=== PATIENT | male | born 1970 | race Caucasian/White ===

== ENCOUNTER 2022-12-26 04:33 | Emergency (ER) | payer BC, SELFPAY ==
[2022-12-26] VITALS (9 sets, daily range): BP systolic 125–171; BP diastolic 87–110; PULSE 104–119; RESP 17–19; TEMP 36.7–36.8; O2SAT 96–99; BMI 28.1; BMI 26.6
[2022-12-26 04:51] LABS: POC Glucose,Bedside 378 (70-110)
--- NOTE | 2022-12-26 04:54 | PC.NURSE ---
Manual BP: 190/118
--- NOTE | 2022-12-26 05:02 | CT_ITS ---
PROCEDURE INFORMATION: Exam: CT Head Without Contrast Exam date and time: 12/26/2022 5:15 AM Age: 52 years old Clinical indication: Visual disturbance; Additional info: Significant vision change without trauma TECHNIQUE: Imaging protocol: Computed tomography of the head without contrast. Radiation optimization: All CT scans at this facility use at least one of these dose optimization techniques: automated exposure control; mA and/or kV adjustment per patient size (includes targeted exams where dose is matched to clinical indication); or iterative reconstruction. REPORTING DATA: Count of CT and Cardiac NM exams in prior 12 months: This patient has received 0 known CTs and 0 known cardiac nuclear medicine studies in the 12 months prior to the current study. COMPARISON: No relevant prior studies available. FINDINGS: Brain: Normal. No hemorrhage. Unremarkable white matter. No mass effect. Cerebral ventricles: No ventriculomegaly. Paranasal sinuses: Visualized sinuses are unremarkable. No fluid levels. Mastoid air cells: Visualized mastoid air cells are well aerated. Bones/joints: Unremarkable. No acute fracture. Soft tissues: Unremarkable. IMPRESSION: No acute intracranial abnormality.
--- NOTE | 2022-12-26 05:08 | PC.NURSE ---
Pt advised he is not able to provide urine sample at this time.
--- NOTE | 2022-12-26 05:12 | PC.NURSE ---
Pt gone to CT via wheelchair
[2022-12-26 05:13] LABS: Basophils # 0.1 K/mm3 (0-0.2); Basophils % 1.9 % (0.1-2.0); Eosinophils # 0.2 K/mm3 (0.0-0.4); Eosinophils % 2.4 % (0.1-12.0); Hematocrit 51.6 % (42.0-52.0); Hemoglobin 17.2 g/dL (14.1-18.0); Lymphocytes # 1.7 K/mm3 (0.7-4.5); Lymphocytes % 24.5 % (10-50); Mean Corpuscular HGB Conc 33.4 g/dL (31.8-35.4); Mean Corpuscular Hemoglobin 29.4 pg (27.0-31.2); Mean Platelet Volume 9.1 fl (7.4-10.4); Monocytes # 0.4 K/mm3 (0.1-1.0); Monocytes % 6.3 % (1.7-9.3); Neutrophils # 4.5 K/mm3 (1.8-7.8); Neutrophils % 64.9 % (37.0-80.0); Platelet Count 242 K/mm3 (142-424); Red Blood Count 5.86 M/mm3 (4.60-6.20); Red Cell Distribution Width 13.5 % (11.5-17.5)
[2022-12-26 05:18] LABS: Acetone, Serum (Rapid) None Detected (None Detect)
[2022-12-26 05:22] LABS: Alanine Aminotransferase 40 U/L (12-78); Albumin Level 4.4 g/dl (3.5-5.0); Albumin/Globulin Ratio 1.6 (1.1-1.8); Alkaline Phosphatase 106 U/L (38-126); Aspartate Amino Transferase 34 U/L (17-59); Bilirubin,Total 0.8 mg/dl (0.2-1.3); Blood Urea Nitrogen 18 mg/dl (9-20); Calcium 9.1 mg/dl (8.4-10.2); Carbon Dioxide 28 mmol/L (22.0-30.0); Chloride 96 mmol/L (98-107); Creatinine Clearance Estimated 127 mL/min (50-200); Estimated Glomerular Filt Rate 118 ml/min (>60); GFR (African American) 143 ML/MIN (>60); Globulin 2.8 g/dL (1.3-3.2); Glucose 392 mg/dl (74-100); Sodium 131 mmol/L (136-145); Total Protein,Serum 7.2 g/dl (6.3-8.2)
--- NOTE | 2022-12-26 05:24 | PC.NURSE ---
Pt back from RAD
[2022-12-26 05:27] LABS: C-Reactive Protein 6.3 mg/L (0-4)
[2022-12-26 05:41] LABS: Procalcitonin 0.075 ng/mL (0.0-2.0)
--- NOTE | 2022-12-26 05:42 | HMH.EDEYEP ---
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 by RN): Pt c/o sudden vision change at 0300 thia morning without trauma. States L > R with vision change. Reporting that the left eye has a red dot or line and it moves when I move my eye. He also notes the left eye to have a small area where it is clear but mostly it is just blotchy . He reports his right eye is just a little bit blurry all over . Denies using any corrective lenses, reports > 20 years since eye exam. He denies any significant PMH, but he does state that he has not been to a provider or ER for evaluation for 30 years. FS 378 on arrival to ER and pt is hypertensive. History of Present Illness HPI Narrative: last known visual ok was mn and at 0300 friend texted and pt unable to read text - no fever/rash or trauma and no ornelas or speech or other neuro sx - no known illness but has no recent health care MD chief complaint: vision change Onset (ago): hour(s) Onset description: awoke with symptoms Duration: constant Location: both eyes Eye Symptoms: decreased vision and blurry vision Place: home Mechanism: none Severity: moderate Associated symptoms: none Treatments Prior to Arrival: none Related Data Previous Rx's Medication Instructions Recorded atorvastatin 10 mg tablet (Lipitor) 10 mg PO HS #30 tabs 12/26/22 lisinopril 5 mg tablet 5 mg PO DAILY #30 tabs 12/26/22 metformin 500 mg tablet,extended 500 mg PO BID #60 tabs 12/26/22 release 24 hr Allergies Allergy/AdvReac Type Severity Reaction Status Date / Time peanut Allergy Severe intestinal Verified 12/26/22 05:00 swelling PFSH [facility] Disclaimer: The information contained in this section may have been updated after the patient was seen, as this information can be updated by other users. Social History Smoking Status: Never smoker alcohol intake: never current occupational status: employed Travel in the last 8 weeks: None ROS Obtained: Yes All systems reviewed & no additional complaints except as documented Physical Exam General General appearance: alert Head Head exam: normocephalic Eye Eye exam: Present PERRL, EOMI and other (unable to see fundi ) ENT ENT exam: Present mucous membranes moist Neck Neck exam: Present trachea midline Respiratory Respiratory exam: Absent respiratory distress Cardiovascular Cardiovascular exam: Present regular rate Abdominal Exam Abdominal exam: Present soft Extremities Exam Extremities exam: Present full ROM Neurological Exam Neurological exam: Present alert, oriented X3 and CN II-XII intact; Absent motor sensory deficit Psychiatric Psychiatric exam: Present normal affect Skin Skin exam: Present other (no temp art tenderness); Absent rash Medical Decision Making Medical Records Medical records reviewed: Yes I reviewed the patient's medical records. Abraham Inquiry Pt receiving controlled substance: No Vital Signs: 12/26/22 04:35 12/26/22 05:01 12/26/22 05:30 Temperature 98.2 F Temperature Source Oral Pulse Rate 104 H 106 H Pulse Rate [Right] 117 H Re
[2022-12-26 05:44] LABS: Erythrocyte Sedimentation Rate 5 mm/hr (0-20)
--- NOTE | 2022-12-26 06:12 | CT_ITS ---
PROCEDURE INFORMATION: Exam: CTA Neck With Contrast Exam date and time: 12/26/2022 6:26 AM Age: 52 years old Clinical indication: Visual disturbance; Additional info: Sudden vision changes, no pain or trauma TECHNIQUE: Imaging protocol: Computed tomographic angiography of the neck with contrast. 3D rendering (Not supervised by radiologist): MIP and/or 3D reconstructed images were created by the technologist. Radiation optimization: All CT scans at this facility use at least one of these dose optimization techniques: automated exposure control; mA and/or kV adjustment per patient size (includes targeted exams where dose is matched to clinical indication); or iterative reconstruction. Contrast material: ISOVUE 370; Contrast volume: 75 ml; Contrast route: INTRAVENOUS (IV); REPORTING DATA: Count of CT and Cardiac NM exams in prior 12 months: This patient has received 2 known CTs and 0 known cardiac nuclear medicine studies in the 12 months prior to the current study. COMPARISON: CT HEAD/BRAIN WO CON 12/26/2022 5:15 AM FINDINGS: Right common carotid artery: No stenosis. No dissection or occlusion. Right internal carotid artery: No stenosis of the extracranial segment. No dissection or occlusion. Right external carotid artery: No occlusion or stenosis of the origin. Left common carotid artery: No stenosis. No dissection or occlusion. Left internal carotid artery: No stenosis of the extracranial segment. No dissection or occlusion. Left external carotid artery: No occlusion or stenosis of the origin. Right vertebral artery: No stenosis. No dissection or occlusion. Left vertebral artery: No stenosis. No dissection or occlusion. Soft tissues: Normal. No significant soft tissue swelling. Bones/joints: No acute fracture. There is degenerative disc disease and spondylosis. IMPRESSION: No stenosis or occlusion. REFERENCES: NASCET CRITERIA. The degree of stenosis in the cervical segment of the internal carotid artery is based on NASCET criteria. Normal is no stenosis. Mild is less than 50% stenosis. Moderate is 50-69% stenosis. Severe is 70% to 99% stenosis. Total occlusion is no detectable patent lumen.
--- NOTE | 2022-12-26 06:12 | CT_ITS ---
PROCEDURE INFORMATION: Exam: CTA Head With Contrast, Arteriography Exam date and time: 12/26/2022 6:26 AM Age: 52 years old Clinical indication: Visual disturbance; Additional info: Sudden vision changes, no pain or trauma TECHNIQUE: Imaging protocol: Computed tomographic angiography of the head with contrast. Exam focused on the arteries. 3D rendering (Not supervised by radiologist): MIP and/or 3D reconstructed images were created by the technologist. Radiation optimization: All CT scans at this facility use at least one of these dose optimization techniques: automated exposure control; mA and/or kV adjustment per patient size (includes targeted exams where dose is matched to clinical indication); or iterative reconstruction. Contrast material: ISOVUE 370; Contrast volume: 100 ml; Contrast route: INTRAVENOUS (IV); REPORTING DATA: Count of CT and Cardiac NM exams in prior 12 months: This patient has received 2 known CTs and 0 known cardiac nuclear medicine studies in the 12 months prior to the current study. COMPARISON: CT HEAD/BRAIN WO CON 12/26/2022 5:15 AM FINDINGS: ANTERIOR CIRCULATION: Right internal carotid artery: Intracranial segment is patent with no significant stenosis. No aneurysm. Right middle cerebral artery: No occlusion or significant stenosis. No aneurysm. Right anterior cerebral artery: No occlusion or significant stenosis. No aneurysm. Left internal carotid artery: Intracranial segment is patent with no significant stenosis. No aneurysm. Left middle cerebral artery: No occlusion or significant stenosis. No aneurysm. Left anterior cerebral artery: No occlusion or significant stenosis. No aneurysm. POSTERIOR CIRCULATION: Right vertebral artery: No occlusion or significant stenosis. No aneurysm. Left vertebral artery: No occlusion or significant stenosis. No aneurysm. Basilar artery: No occlusion or significant stenosis. No aneurysm. Right posterior cerebral artery: No occlusion or significant stenosis. No aneurysm. Left posterior cerebral artery: No occlusion or significant stenosis. No aneurysm. Brain: No definite mass, mass effect, or midline shift. Cerebral ventricles: No ventriculomegaly. Bones/joints: Unremarkable. No acute fracture. Soft tissues: Unremarkable. IMPRESSION: No large vessel stenosis or occlusion.
[2022-12-26 06:31] LABS: Hemoglobin A1C > 14.0 % (4.0-6.0)
--- NOTE | 2022-12-26 07:05 | PC.NURSE ---
Dr. Jenkins called per Dr. alexander, left voicemail to return call to ER.
--- NOTE | 2022-12-26 08:09 | PC.NURSE ---
ROUNDED ON PT, UPDATED AT THIS TIME. PT ASSISTED TO BR
--- NOTE | 2022-12-26 08:16 | PC.NURSE ---
DR PHELPS AT BEDSIDE
--- NOTE | 2022-12-26 08:26 | PC.NURSE ---
DR PHELPS SPEAKING WITH DR BILLS
== END 2022-12-26 08:55 | disposition home or self-care (01) ==
PROVIDERS: Emergency Provider Emergency Medicine
DX: E11.39 Type 2 diabetes mellitus with other diabetic ophthalmic complication (principal); E11.65 Type 2 diabetes mellitus with hyperglycemia; E87.1 Hypo-osmolality and hyponatremia; I10 Essential (primary) hypertension
CPT/HCPCS: 70450; 70496; 70498; 80053; 82009; 82962; 83036; 84145; 85025; 85651; 86140; 96360; 99285; Q9967

== ENCOUNTER 2024-04-15 19:01 | Outpatient (CLI) | payer BC, SELFPAY ==
[2024-04-15 20:24] LABS: Anion Gap 11.7 mEq/L (5-15); Blood Urea Nitrogen 21 mg/dl (9-20); Carbon Dioxide 24 mmol/L (22.0-30.0); Chloride 109 mmol/L (98-107); Potassium 4.7 mmoL/L (3.5-5.1); Sodium 140 mmol/L (136-145)
[2024-04-15 20:25] LABS: Alanine Aminotransferase 34 U/L (12-78); Albumin Level 3.9 g/dl (3.5-5.0); Albumin/Globulin Ratio 1.5 (1.1-1.8); Alkaline Phosphatase 74 U/L (38-126); Aspartate Amino Transferase 29 U/L (17-59); Bilirubin,Total 0.6 mg/dl (0.2-1.3); Chol/HDL Ratio 2.1 (1-3.5); Cholesterol 154 mg/dl (140-200); Estimated Glomerular Filt Rate 101 ml/min (>60); GFR (African American) 122 ML/MIN (>60); Globulin 2.6 g/dL (1.3-3.2); Glucose 219 mg/dl (74-100); HDL Cholesterol 72 mg/dl (40-60); Total Protein,Serum 6.5 g/dl (6.3-8.2); Triglycerides 89 mg/dl (30-150); VLDL Cholesterol 18 mg/dL (0-40)
[2024-04-15 20:35] LABS: Direct LDL Cholesterol 55.91 mg/dL (100-129)
[2024-04-15 20:55] LABS: Prostate Specific Ag Screen 0.8 ng/ml (0.0-4.0)
== END 2024-04-15 23:59 | disposition home or self-care (01) ==
LOC: LAB.DROPOF 19:02
PROVIDERS: PCP Family Medicine; Visit Provider Family Medicine
DX: Z12.5 Encounter for screening for malignant neoplasm of prostate (principal); E66.9 Obesity, unspecified; Z68.30 Body mass index [BMI] 30.0-30.9, adult
CPT/HCPCS: 80053; 80061; G0103

== ENCOUNTER 2024-06-13 09:57 | Outpatient (CLI) | payer BC, SELFPAY ==
[2024-06-13 18:52] LABS: Alanine Aminotransferase 33 U/L (12-78); Albumin Level 3.9 g/dl (3.5-5.0); Albumin/Globulin Ratio 1.5 (1.1-1.8); Alkaline Phosphatase 81 U/L (38-126); Anion Gap 13.5 mEq/L (5-15); Aspartate Amino Transferase 31 U/L (17-59); Bilirubin,Total 0.5 mg/dl (0.2-1.3); Blood Urea Nitrogen 27 mg/dl (9-20); Calcium 9.5 mg/dl (8.4-10.2); Carbon Dioxide 24 mmol/L (22.0-30.0); Chloride 102 mmol/L (98-107); Chol/HDL Ratio 2.3 (1-3.5); Cholesterol 171 mg/dl (140-200); Estimated Glomerular Filt Rate 70 ml/min (>60); GFR (African American) 84 ML/MIN (>60); Globulin 2.6 g/dL (1.3-3.2); Glucose 303 mg/dl (74-100); HDL Cholesterol 75 mg/dl (40-60); Potassium 4.5 mmoL/L (3.5-5.1); Sodium 135 mmol/L (136-145); Total Protein,Serum 6.5 g/dl (6.3-8.2); Triglycerides 181 mg/dl (30-150); VLDL Cholesterol 36 mg/dL (0-40)
[2024-06-13 19:05] LABS: Direct LDL Cholesterol 73.74 mg/dL (100-129)
[2024-06-13 19:15] LABS: Hemoglobin A1C 10.9 % (4.0-6.0)
== END 2024-06-13 23:59 | disposition home or self-care (01) ==
LOC: LAB.DROPOF 06-16 12:26
PROVIDERS: PCP Family Medicine; Visit Provider Family Medicine
DX: L60.3 Nail dystrophy (principal); E11.42 Type 2 diabetes mellitus with diabetic polyneuropathy; Z79.84 Long term (current) use of oral hypoglycemic drugs
CPT/HCPCS: 80053; 80061; 83036

== ENCOUNTER 2024-06-28 12:02 | Emergency (ER) | payer BC, SELFPAY ==
[2024-06-28] VITALS (7 sets, daily range): BP systolic 98–139; BP diastolic 60–115; PULSE 109–116; RESP 15–22; TEMP 36.9; O2SAT 96–100; BMI 31.3; BMI 33.4
--- NOTE | 2024-06-28 12:05 | ECG_ITS ---
APPROVED REPORT Exam: Resting ECG HR:115 bpm ECG Measurements Heart Rate 115 AXES OR 160 P 58 QRSd 129 QRS 87 QT 331 T 17 QTc 399 Conclusion Sinus tachycardia Right bundle branch block T wave inversions without elevations Electronically signed by : ISIAH GARCIA, 06/28/2024 15:12:40
--- NOTE | 2024-06-28 12:05 | PC.NURSE ---
TONY @ BS at this time
--- NOTE | 2024-06-28 12:07 | PC.NURSE ---
glucose was 339
--- NOTE | 2024-06-28 12:08 | PC.NURSE ---
stroke alert called
--- NOTE | 2024-06-28 12:11 | CT_ITS ---
PROCEDURE INFORMATION: Exam: CTA Neck With Contrast Exam date and time: 06/28/2024 12:19 PM Age: 54 years old Clinical indication: Stroke-like symptoms; Altered mental status/memory loss; Additional info: AMS aphasia TECHNIQUE: Imaging protocol: Computed tomographic angiography of the neck with contrast. Exam focused on the cervical segments of the vasculature. 3D rendering (Not supervised by radiologist): MIP and/or 3D reconstructed images were created by the technologist. Radiation optimization: All CT scans at this facility use at least one of these dose optimization techniques: automated exposure control; mA and/or kV adjustment per patient size (includes targeted exams where dose is matched to clinical indication); or iterative reconstruction. Contrast material: ISOVUE 370; Contrast volume: 80 ml; Contrast route: INTRAVENOUS (IV); COMPARISON: CT ANGIO NECK 12/26/2022 6:26 AM FINDINGS: Right common carotid artery: The right common carotid artery is widely patent. No stenosis. Right internal carotid artery: The right internal carotid artery is patent. No stenosis by NASCET criteria. No evidence of dissection. Right external carotid artery: No occlusion or stenosis of the origin. Left common carotid artery: The left common carotid artery is widely patent. No stenosis. Left internal carotid artery: The left internal carotid artery is patent. No stenosis by NASCET criteria. No evidence of dissection. Left external carotid artery: No occlusion or stenosis of the origin. Right vertebral artery: Right vertebral artery is unremarkable without flow-limiting stenosis. Left vertebral artery: Left vertebral artery is unremarkable without flow-limiting stenosis. Right subclavian artery: No flow-limiting stenosis in the proximal right subclavian artery. Left subclavian artery: No flow-limiting stenosis in the proximal left subclavian artery. Soft tissues: Normal. No significant soft tissue swelling. Bones/joints: No acute fracture. IMPRESSION: No evidence of occlusion or dissection along the major cervical arteries. REFERENCES: NASCET CRITERIA. The degree of stenosis in the cervical segment of the internal carotid artery is based on NASCET criteria. Normal is no stenosis. Mild is less than 50% stenosis. Moderate is 50-69% stenosis. Severe is 70% to 99% stenosis. Total occlusion is no detectable patent lumen.
--- NOTE | 2024-06-28 12:11 | CT_ITS ---
PROCEDURE INFORMATION: Exam: CTA Head With Contrast, Arteriography Exam date and time: 06/28/2024 12:19 PM Age: 54 years old Clinical indication: Stroke-like symptoms; Altered mental status/memory loss; Additional info: AMS aphasia TECHNIQUE: Imaging protocol: Computed tomographic angiography of the head with contrast. Exam focused on the arteries. 3D rendering (Not supervised by radiologist): MIP and/or 3D reconstructed images were created by the technologist. Radiation optimization: All CT scans at this facility use at least one of these dose optimization techniques: automated exposure control; mA and/or kV adjustment per patient size (includes targeted exams where dose is matched to clinical indication); or iterative reconstruction. Contrast material: ISOVUE 360; Contrast volume: 80 ml; Contrast route: INTRAVENOUS (IV); COMPARISON: CT ANGIO HEAD 12/26/2022 6:26 AM FINDINGS: ANTERIOR CIRCULATION: Right internal carotid artery: Intracranial segment is patent with no significant stenosis. No aneurysm. Right middle cerebral artery: Right middle cerebral artery is patent. No significant stenosis. No aneurysm. Right anterior cerebral artery: Right anterior cerebral artery is patent. No significant stenosis. No aneurysm. Left internal carotid artery: Intracranial segment is patent with no significant stenosis. No aneurysm. Left middle cerebral artery: There is a thrombus in the left middle cerebral artery, M2 branch, inferior division. Left anterior cerebral artery: Left anterior cerebral artery is patent. No significant stenosis. No aneurysm. POSTERIOR CIRCULATION: Right vertebral artery: Right vertebral artery is unremarkable without flow-limiting stenosis. Left vertebral artery: Left vertebral artery is unremarkable without flow-limiting stenosis. Basilar artery: Basilar artery is patent. Right posterior cerebral artery: There is persistent origin of right posterior cerebral artery. Right posterior cerebral artery is patent. No significant stenosis. No aneurysm. Left posterior cerebral artery: Left posterior cerebral artery is patent. No significant stenosis. No aneurysm. Veins: Dural venous sinuses are patent Brain: There is a moderate-sized hypoenhancing region in the left temporal lobe consistent with known evolving left temporal lobe infarct. Cerebral ventricles: No ventriculomegaly. Bones/joints: Unremarkable. No acute fracture. Soft tissues: Unremarkable. Other findings: Moderate collateral network noted. IMPRESSION: 1. There is a thrombus in the left middle cerebral artery, M2 branch inferior division. 2. Evolving left temporal lobe infarct.
--- NOTE | 2024-06-28 12:11 | CT_ITS ---
PROCEDURE INFORMATION: Exam: CTA Chest With Contrast Exam date and time: 06/28/2024 12:23 PM Age: 54 years old Clinical indication: Other: Aphasia; Additional info: AMS, aphasia TECHNIQUE: Imaging protocol: Computed tomographic angiography of the chest with contrast. Exam focused on the arteries. 3D rendering (Not supervised by radiologist): MIP and/or 3D reconstructed images were created by the technologist. Radiation optimization: All CT scans at this facility use at least one of these dose optimization techniques: automated exposure control; mA and/or kV adjustment per patient size (includes targeted exams where dose is matched to clinical indication); or iterative reconstruction. Contrast material: ISOVUE 370; Contrast volume: 80 ml; Contrast route: INTRAVENOUS (IV); COMPARISON: CT ANGIO ABDOMEN PELVIS 06/28/2024 12:23 PM FINDINGS: Pulmonary arteries: Normal. No pulmonary emboli. Aorta: Unremarkable. No aortic aneurysm. No aortic dissection. Lungs: Unremarkable. No consolidation. No masses. Pleural spaces: Unremarkable. No pneumothorax. No pleural effusion. Heart: Unremarkable. No cardiomegaly. No pericardial effusion. Esophagus: Mild distension of distal esophagus with gas. No wall thickening identified. Lymph nodes: Unremarkable. No enlarged lymph nodes. Bones/joints: Unremarkable. No acute fracture. Soft tissues: Unremarkable. IMPRESSION: 1. Mild distension of distal esophagus with gas. No wall thickening identified. 2. Negative for aortic aneurysm or dissection.
--- NOTE | 2024-06-28 12:12 | CT_ITS ---
PROCEDURE INFORMATION: Exam: CT Head Without Contrast Exam date and time: 06/28/2024 12:17 PM Age: 54 years old Clinical indication: Stroke-like symptoms; Altered mental status/memory loss; Additional info: AMS aphasia TECHNIQUE: Imaging protocol: Computed tomography of the head without contrast. Radiation optimization: All CT scans at this facility use at least one of these dose optimization techniques: automated exposure control; mA and/or kV adjustment per patient size (includes targeted exams where dose is matched to clinical indication); or iterative reconstruction. Other technique: STROKE PROTOCOL was implemented. COMPARISON: CT ANGIO HEAD 12/26/2022 6:26 AM FINDINGS: Brain: There is loss of grady-white matter differentiation in the left temporal lobe. Cerebral ventricles: No ventriculomegaly. Paranasal sinuses: Visualized sinuses are unremarkable. No fluid levels. Mastoid air cells: Visualized mastoid air cells are well aerated. Bones: Unremarkable. No acute fracture. Soft tissues: Unremarkable. Vasculature: Dense left middle cerebral artery is suspicious for thrombus. IMPRESSION: 1. Evolving left middle cerebral artery infarct. 2. Dense left middle cerebral artery is suspicious for thrombus. ASSESSMENT: ASPECTS ([place] Stroke Program Early CT Score) is 8
--- NOTE | 2024-06-28 12:12 | CT_ITS ---
PROCEDURE INFORMATION: Exam: CTA Abdomen and Pelvis With Contrast Exam date and time: 06/28/2024 12:23 PM Age: 54 years old Clinical indication: Other: R/O dissection; Additional info: AMS aphasia. Rule out dissection TECHNIQUE: Imaging protocol: Computed tomographic angiography of the abdomen and pelvis with contrast. Exam focused on the arteries. 3D rendering (Not supervised by radiologist): MIP and/or 3D reconstructed images were created by the technologist. Radiation optimization: All CT scans at this facility use at least one of these dose optimization techniques: automated exposure control; mA and/or kV adjustment per patient size (includes targeted exams where dose is matched to clinical indication); or iterative reconstruction. Contrast material: ISOVUE 370; Contrast volume: 80 ml; Contrast route: INTRAVENOUS (IV); COMPARISON: CT ANGIO CHEST 06/28/2024 12:23 PM FINDINGS: Aorta: No aortic aneurysm. No aortic dissection. Celiac trunk and mesenteric arteries: No occlusion or significant stenosis. Renal arteries: No occlusion or significant stenosis. Right iliac arteries: No occlusion or significant stenosis. Left iliac arteries: No occlusion or significant stenosis. Liver: No mass. Gallbladder and biliary ducts: Unremarkable. No calcified stones. No ductal dilation. Pancreas: Unremarkable. No mass. No ductal dilation. Spleen: Unremarkable. No splenomegaly. Adrenal glands: Unremarkable. No mass. Kidneys and ureters: Unremarkable. No solid mass. No hydronephrosis. Stomach and bowel: Unremarkable. No obstruction. No mucosal thickening. Appendix: No evidence of appendicitis. Intraperitoneal space: Unremarkable. No free air. No significant fluid collection. Lymph nodes: Unremarkable. No enlarged lymph nodes. Urinary bladder: Unremarkable. No mass. Reproductive: Unremarkable as visualized. Bones/joints: No acute fracture. Soft tissues: Fat containing inguinal hernias bilaterally. IMPRESSION: Negative for aortic aneurysm or dissection.
--- NOTE | 2024-06-28 12:13 | PC.NURSE ---
pt to CT scan
--- NOTE | 2024-06-28 12:16 | PC.NURSE ---
DR GARCIA SPEAKING WITH DR KHAN
[2024-06-28] MEDS: IOPAMIDOL-370 (76%);100ML BOTTLE 160 ML IV (12:18)
[2024-06-28] MEDS: SODIUM CHLORIDE 0.9% 10ML SYR (RAD ONLY) 10 ML IV (12:18)
[2024-06-28] MEDS: 0.9 % SODIUM CHLORIDE 50 ML VIAL IV (12:18)
[2024-06-28 12:20] LABS: Basophils % 0.2 % (0.1-2.0); Eosinophils # 0.1 K/mm3 (0.0-0.4); Hematocrit 52.1 % (42.0-52.0); Hemoglobin 16.5 g/dL (14.1-18.0); Lymphocytes # 1.8 K/mm3 (0.7-4.5); Lymphocytes % 12.2 % (10-50); Mean Corpuscular HGB Conc 31.7 g/dL (31.8-35.4); Mean Corpuscular Hemoglobin 29.7 pg (27.0-31.2); Mean Corpuscular Volume 93.8 fl (80-94); Monocytes % 6.8 % (1.7-9.3); Neutrophils # 11.5 K/mm3 (1.8-7.8); Neutrophils % 79.8 % (37.0-80.0); Platelet Count 288 K/mm3 (142-424); Red Blood Count 5.55 M/mm3 (4.60-6.20); Red Cell Distribution Width 13.8 % (11.5-17.5); White Blood Count 14.4 K/mm3 (4.8-10.8)
--- NOTE | 2024-06-28 12:23 | PC.NURSE ---
spoke with pts friend in [facility] who is the person that called [facility]. She states pt is normally alert and oriented. has a history of diabetes and insomnia. states when she arrived at his apartment he was disoriented and unable to answer any questions.
--- NOTE | 2024-06-28 12:24 | HMH.ITSTN ---
GFR completion/results overrode for this patient by physician on a risk vs. benefit situation.
[2024-06-28 12:27] LABS: VBG Base Excess -13.4 mmol/L (-2.4-2.3); VBG HCO3 13.8 mmol/L (23-30); VBG Oxygen Saturation 82.3 % (50-70); VBG PCO2 32.6 mmol/L (35-51); VBG PH 7.25 mmol/L (7.31-7.41); VBG PO2 49.2 mmol/L (28-40); VBG Total CO2 14.8 mmol/L (23-27)
[2024-06-28 12:28] LABS: Lactate Venous 3.1 mmol/L (0.4-2.0)
[2024-06-28 12:28] LABS: Albumin Level 4.8 g/dl (3.5-5.0); Chloride 102 mmol/L (98-107)
--- NOTE | 2024-06-28 12:28 | HMH.EDGENADL ---
Discharge Plan Disposition Patient Disposition: Xfer Short-Term Hosp Chief Complaint: Altered Mental Status Prescriptions Prescriptions: No Action Tradjenta 5 mg tablet 5 mg PO DAILY Qty: 30 2RF (DME) FreeStyle Yrn 14 Day Sensor Kit See Rx Instructions .Route Qty: 1 0RF Rx Instructions: As directed (DME) FreeStyle Yrn 14 Day [place] Misc See Rx Instructions .Route Qty: 1 0RF Rx Instructions: As directed (DME) Blood Glucose Test Strip See Rx Instructions .Route Qty: 100 0RF Rx Instructions: As directed (DME) lancets 30 gauge misc See Rx Instructions .Route Qty: 100 0RF Rx Instructions: As directed lisinopril 10 mg tablet 10 mg PO DAILY Qty: 30 2RF atorvastatin 10 mg tablet See Rx Instructions .ROUTE .COMPLEX Qty: 30 1RF Dose Instruction: TAKE 1 TABLET BY MOUTH ONCE DAILY AT NIGHT AT BEDTIME Rx Instructions: TAKE 1 TABLET BY MOUTH ONCE DAILY AT NIGHT AT BEDTIME metformin 1,000 mg tablet See Rx Instructions .ROUTE .COMPLEX Qty: 180 0RF Dose Instruction: TAKE 1 TABLET BY MOUTH TWICE DAILY FOR DIABETES Rx Instructions: TAKE 1 TABLET BY MOUTH TWICE DAILY FOR DIABETES (DME) Dexcom G7 Salvager Helper Misc See Rx Instructions .Route Qty: 1 0RF Rx Instructions: As directed (DME) Dexcom G7 Sensor Device See Rx Instructions .Route Qty: 1 0RF Rx Instructions: As directed Jardiance 25 mg tablet 25 mg PO DAILY Qty: 30 2RF Rx Instructions: e11.9 Referrals Follow up/Referrals: Dheeraj Wood MD [Primary Care Provider] - See instructions Clinical Impressions Clinical Impression: Acute ischemic left MCA stroke, DKA (diabetic ketoacidosis), Encephalopathy, Acute hyperkalemia Stand Alone Forms Stand Alone Forms: Transfer Record - ED Instructions Patient Instructions: DI for Altered Mental Status Print Language Print Language: Frisian Discharge ED Provider: [facility] General Chief complaint: Altered Mental Status Stated complaint: Chest pain Time Seen by Provider: 06/28/24 12:10 Mode of Arrival: EMS Source of Information: EMS Limitations: Altered Mental Status Description of Symptoms (Recalled from ER Triage Doc. by RN): pts sister in law called ems due to pt having altered mental status. last known well was . he is currently altered. unable to answer questions or follow commands. pt is pale and clammy. History of Present Illness HPI narrative: Please note that above description of symptoms, in this electronic medical record under categorization of recalled from ER triage doctor by RN are reflective of an initial nursing assessment, however, is not reflective of my full history and physical exam that was personally taken and clarified. Consequentially, this preceding description of symptoms, which may include the patient's categorized chief complaint in the EMR, do not reflect my personal clinical impression, and the ultimate description of history of present illness and patient stated complaints should be deferred to this section of the note. Unless stated otherwise or congruent with this section of the note, additional signs, symptoms, or incongruence should be interpreted as inaccurate with my clinical impression. Related Data Home Medications ?Medication ?Instructions ?Recorded ?Confirmed atorvastatin 10 mg tablet 10 mg PO HS 06/28/24 06/28/24 metformin 1,000 mg tablet 1,000 mg PO BIDWMEAL 06/28/24 06/28/24 Previous Rx's ?Medication ?Instructions ?Recorded blood sugar diagnostic (Blood #100 ea 02/19/23 Glucose Test strips) flash glucose scanning reader #1 ea 02/19/23 (FreeStyle Yrn 14 Day [place]) flash glucose sensor (FreeStyle #1 ea 02/19/23 Yrn 14 Day Sensor kit) lancets 30 gauge #100 ea 02/19/23 blood-glucose meter,continuous #1 ea 06/18/23 (Dexcom G7 Salvager Helper) blood-glucose sensor (Dexcom G7 #1 ea 06/18/23 Sensor device) lisinopril 10 mg tablet 10 mg PO DAILY #30 tabs 04/15/24 empagliflozin 25 mg tablet 25 mg PO DAILY #30 tabs 04/24/24 (Jardiance) linagliptin 5 mg tablet (Tradjenta) 5 mg PO DAILY #30 tabs 06/16/24 Allergies Allergy/AdvReac Type Severity Reaction Status Date / Time peanut Allergy Severe intestinal Verified 06/13/24 09:13 [facility] Disclaimer: The information contained in this section may have been updated after the patient was seen, as this information can be updated by other users. Medical History Onychomycosis Diabetic neuropathy HLD (hyperlipidemia) HTN (hypertension), benign T2DM (type 2 diabetes mellitus) Surgical History History of repair of ACL Hx of tonsillectomy Family History Other Adopted Asthma Cancer Coronary artery disease Diabetes Heart attack Hyperlipidemia Hypertension Social History Smoking Status: Unknown if ever smoked alcohol intake: never current occupational status: employed Travel in the last 8 weeks: None ROS Obtained: Yes unobtainable due to mental status Physical Exam General General appearance: alert and in no apparent distress Eye Eye exam: Present normal appearance, PERRL and other (Blind in both eyes at baseline) ENT ENT exam: Present normal exam Chest Chest inspection: Present normal inspection Respiratory Respiratory exam: Present normal lung sounds bilaterally and respiratory distress Cardiovascular Cardiovascular exam: Present normal rhythm and tachycardia; Absent systolic murmur Abdominal Exam Abdominal exam: Present soft and distention; Absent tenderness Extremities Exam Extremities exam: Present normal inspection and full ROM (Opening spontaneously all 4 extremities, nothing on command) Neurological Exam Neurological exam: Present alert and other (Unable to cooperate with NIH, but score of 8 based on limitations); Absent oriented X3, CN II-XII intact, normal gait or motor sensory deficit Skin Skin exam: Present dry (Cool); Absent warm Medical Decision Making Medical Records Medical records reviewed: Yes I reviewed the patient's medical records. Screening: Per USPSTF and CDC recommendations, given the prevalence of disease in our region, it is our hospital?s policy to screen for HIV and viral Hepatitis for all patients aged 18 and over and those with ongoing risk factors. Abraham Inquiry Pt receiving controlled substance: No Abraham was queried for this patient: No Vital Signs: 06/28/24 12:03 06/28/24 12:37 Temperature 98.4 F Temperature Source Rectal Pulse Rate [Right] 116 H Respiratory Rate 22 Blood Pressure [Right Arm] 139/115 H Blood Pressure Mean [Right Arm] 123 02 Sat by Pulse Oximetry 98 Lab Data Lab Results 06/28/24 12:02: WBC 14.4 H, RBC 5.55, Hgb 16.5, Hct 52.1 H, MCV 93.8, MCH 29.7, MCHC 31.7 L, RDW 13.8, Plt Count 288, MPV 8.0, Neut % (Auto) 79.8, Lymph % (Auto) 12.2, Wright % (Auto) 6.8, Eos % (Auto) 1.0, Baso % (Auto) 0.2, Neut # (Auto) 11.5 H, Lymph # (Auto) 1.8, Wright # (Auto) 1.0, Eos # (Auto) 0.1, Baso # (Auto) 0.0, APTT 28.5, Sodium 132 L, Potassium 5.4 H, Chloride 102, Carbon Dioxide 14 L, Anion Gap 21.4 H, BUN 30 H, Creatinine 1.30 H, Estimated Creat Clear 92, Estimated GFR 58 L, Est GFR ( Amer) 70, Glucose 311 H, Hemoglobin A1c 11.1 H, Lactate 2.0, Calcium 10.1, Magnesium 2.3, Total Bilirubin 1.0, AST 27, ALT 32, Alkaline Phosphatase 81, Total Creatine Kinase 57, Troponin I < 0.01, NT-Pro-B Natriuret Pep 43.7, Total Protein 7.4, Albumin 4.8, Globulin 2.6, Albumin/Globulin Ratio 1.8, Triglycerides 102, Cholesterol 179, LDL Cholesterol Direct 63.37 L, VLDL Cholesterol 20, HDL Cholesterol 81 H, Cholesterol/HDL Ratio 2.2, Thyroxine (T4) 10.5, HIV 1&2 Antibody Rapid Nonreactive 06/28/24 12:22: VBG pH 7.25 L, VBG pCO2 32.6 L, VBG pO2 49.2 H, VBG HCO3 13.8 L, VBG Total CO2 14.8 L, VBG O2 Saturation 82.3 H, VBG Base Excess -13.4 L, VBG Lactic Acid 3.1 H 06/28/24 12:02 06/28/24 12:02 Orders (Tests/Meds): ED MEDICATIONS Generic Name Dose Route Start Last Admin Trade Name Freq PRN Reason Stop Dose Admin Sodium Chloride 10 ml 06/28/24 12:17 06/28/24 12:18 Sodium Chloride 0.9% 10ml Syr (Rad Only) IV 07/28/24 12:16 10 ml NEEDED PRN Administration Maintain IV Site Discontinued Medications Generic Name Dose Route Start Last Admin Trade Name Freq PRN Reason Stop Dose Admin Aspirin 324 mg 06/28/24 12:11 06/28/24 12:37 Aspirin 81mg Chewable Tablet PO 06/28/24 12:12 324 mg ONCE ONE Administration Sodium Chloride 1,000 mls @ 999 mls/hr 06/28/24 12:11 06/28/24 12:34 Sod Chlor 0.9% 1000ml Bag IV 06/28/24 13:11 999 mls/hr .Q1H1M ONE Administration Iopamidol 160 ml 06/28/24 12:17 06/28/24 12:18 Iopamidol-370 (76%);100ml Bottle IV 06/28/24 12:18 160 ml ONCE ONE Administration Sodium Chloride 50 ml 06/28/24 12:17 06/28/24 12:18 0.9 % Sodium Chloride 50 Ml Vial IV 06/28/24 12:18 50 ml ONCE ONE Administration ORDERS Category Date Time Status CT angio abdomen pelvis Stat Cat Scan 06/28/24 12:[address] angio head Stat Cat Scan 06/28/24 12:[address] angio neck Stat Cat Scan 06/28/24 12:[address] head/brain wo con Stat Cat Scan 06/28/24 12:12 Completed CTA Chest [CT angio chest - dissection] Stat Cat Scan 06/28/24 12:11 Completed POCUS Point of Care (ER Only) Stat Exams 06/28/24 12:12 Completed CK [Creatine Kinase] Stat Lab 06/28/24 12:02 Results Complete Blood Count Auto Diff Stat Lab 06/28/24 12:02 Completed Comprehensive Metabolic Panel Stat Lab 06/28/24 12:02 Results HIV (1&2) Antibody Rapid Stat Lab 06/28/24 12:02 Completed Hemoglobin A1C Stat Lab 06/28/24 12:02 Completed Hep C Ab with Reflex to RNA Stat Lab 06/28/24 12:02 Received Lactic Acid Stat Lab 06/28/24 12:02 Completed Lipid Panel Stat Lab 06/28/24 12:02 Results Magnesium Stat Lab 06/28/24 12:02 Results NT Pro Brain Natriuretic Pep. Stat Lab 06/28/24 12:02 Results PTT [Activated Partial Thrombo Time] Stat Lab 06/28/24 12:02 Completed T4 (Thyroxine) Stat Lab 06/28/24 12:02 Results TSH [Thyroid Stimulating Hormone] Stat Lab 06/28/24 12:02 Results Troponin I Q3H Lab 09/28/24 15:15 Ordered Troponin I Q3H Lab 06/28/24 18:15 Ordered Troponin I Stat Lab 06/28/24 12:02 Results Blood Culture Stat Micro 06/28/24 12:51 Received VBG [Venous Blood Gas] Stat RT 06/28/24 12:22 Completed Medical Decision Narrative: 54-year-old male history of hypertension, hyperlipidemia, uncontrolled diabetes complicated by diabetic retinopathy and blindness bilaterally presenting with altered mental status. Last known well was 2 days ago on 06/26. Per patient's girlfriend, that was when he was last normal. Yesterday, unable to have conversations, largely sedentary. Patient's sister came to check on him today, 06/28, found him altered. EMS was contacted. On EMS arrival, patient's glucose in the 300s, not following any commands, not acutely ill. Twelve-lead with EMS reportedly concern for STEMI. Brought to the emergency department for further evaluation. History obtained with EMS. On arrival, patient hemodynamically stable, alert, GCS 10. NIHSS 8, but largely uncooperative with entire exam. Full physical exam performed and significant for moving bilateral upper and lower extremities spontaneously, nothing to command. No evidence of facial droop. Aphasic, but words are clear when speaking. Looking around the room and engaging on his left and right sides. Cardiac exam with no murmurs gallops rubs, no evidence of systolic or diastolic murmur. Pulses equal and symmetric in upper and lower extremities. Abdomen soft, nontender, nondistended. Lungs are clear to auscultation bilaterally anterior and posteriorly. Differential includes embolic stroke, hemorrhagic stroke, metabolic abnormality, intracranial mass, ACS, AL, dissection, intoxication, withdrawal, among others. Patient placed on continuous cardiac monitoring and continuous pulse ox with initial blood pressure 139/115, heart rate 160, saturation 98% on room air. Independent interpretation of EKG shows sinus tachycardia 115 bpm with right bundle branch block morphology. Patient does have T wave inversions in anterior leads. Inferior RSR prime versus ST elevation primarily in lead III. FL 160, QRS 129, QTc 399. Cardiology contacted and case was discussed at length, did not feel it was STEMI criteria. Patient immediately sent to the scanner. Patient was given normal saline bolus for symptomatic management and correction of underlying abnormalities. Workup independently interpreted and significant for leukocytosis 14.4 with neutrophilia. Patient's VBG uncompensated metabolic acidosis pH 7.25, CO2 low at 32, bicarb low 14, lactate 3.1. Patient's chemistry concerning for hyponatremia 132, hyperkalemia 5.4, anion gap 21.4, glucose greater than 300. Concerning for DKA. JUANCHO with creatinine 1.3 and BUN 30. A1c 11.1. Troponin negative, CK normal, thyroid studies normal. On independent interpretation of imaging, patient has subacute infarct in his left temporal lobe and MCA distribution. Acute left M2 thrombus. Given involved on CT Noncon, likely greater than 12 to 24 hours old. Thrombolytics not administered. CT angiogram of the chest abdomen pelvis without acute dissection.Transfer was initiated through [facility]. Patient was empirically antibiosis with vancomycin, cefepime, sepsis bolus was administered with normal saline. Given DKA, patient was also placed on insulin drip at 0.1 u per KG per hour. See radiology read for full review of final results. Because patient high risk for clinical decompensation if discharged, deemed appropriate for transfer and inpatient admission. Results were relayed to patient family who voiced understanding and patient was agreeable to transfer, inpatient admission, and management. Patient was graciously accepted and transferred to [facility] for further definitive management, under Dr. Davis. Dolphin Researcher disclaimer Much of this encounter note is an electronic provider education specialist spoken language to printed text. Electronic provider education specialist of the spoken language may permit errors. Although I have reviewed the note, some errors may still exist. Critical Care Critical Care Time Critical Care Time: Yes (neuro, endo) Attestation: On 06/28/24, the high probability of a clinically significant, sudden or life threatening deterioration of the following system(s) required my full and direct attention, intervention and personal management. The time I documented below is in addition to time spent performing reported procedures but includes the following listed in this critical care notation. Total Time Total Critical Care Time: 60
[2024-06-28 12:29] LABS: Potassium 5.4 mmoL/L (3.5-5.1); Sodium 132 mmol/L (136-145)
[2024-06-28 12:31] LABS: Alanine Aminotransferase 32 U/L (12-78); Albumin/Globulin Ratio 1.8 (1.1-1.8); Alkaline Phosphatase 81 U/L (38-126); Anion Gap 21.4 mEq/L (5-15); Aspartate Amino Transferase 27 U/L (17-59); Blood Urea Nitrogen 30 mg/dl (9-20); Carbon Dioxide 14 mmol/L (22.0-30.0); Cholesterol 179 mg/dl (140-200); Creatine Kinase 57 U/L (55-170); Creatinine Clearance Estimated 92 mL/min (50-200); Estimated Glomerular Filt Rate 58 ml/min (>60); GFR (African American) 70 ML/MIN (>60); Globulin 2.6 g/dL (1.3-3.2); Total Protein,Serum 7.4 g/dl (6.3-8.2); Triglycerides 102 mg/dl (30-150); VLDL Cholesterol 20 mg/dL (0-40)
[2024-06-28 12:32] LABS: Calcium 10.1 mg/dl (8.4-10.2); Chol/HDL Ratio 2.2 (1-3.5); Glucose 311 mg/dl (74-100); HDL Cholesterol 81 mg/dl (40-60); Magnesium 2.3 mg/dl (1.6-2.3)
[2024-06-28 12:34] LABS: Activated Partial Thrombo Time 28.5 seconds (22.8-30.6); Hemoglobin A1C 11.1 % (4.0-6.0)
[2024-06-28] MEDS: 0.9 % SODIUM CHLORIDE 1000ML 1,000 ML 999 ML IV (12:34)
[2024-06-28] MEDS: ASPIRIN 81MG CHEWABLE TABLET 324 MG PO (12:37)
[2024-06-28 12:43] LABS: Direct LDL Cholesterol 63.37 mg/dL (100-129)
[2024-06-28 12:44] LABS: NT Pro Brain Natriuretic Pep. 43.7 pg/mL (0-125)
[2024-06-28 12:50] LABS: Troponin I < 0.01 ng/ml (0.00-0.034)
[2024-06-28 12:51] LABS: T4 (Thyroxine) 10.5 ug/dl (5.53-11.0)
[2024-06-28 13:07] LABS: HIV (1&2) Antibody Rapid NONREACTIVE (NONREACTIVE)
--- NOTE | 2024-06-28 13:23 | HMH.PHAINT1 ---
Pharmacy Intervention Comments: MEDICATION RECONCILIATION COMPLETED ON PATIENT USING EXTERNAL FILL HISTORY FROM PHARMACY AND LIST FROM PCP OFFICE. -JUSTUS WILLSON, STEVEND
[2024-06-28] MEDS: CEFEPIME HCL 2 GM in 0.9 % SODIUM CHLORIDE 100 ML IV (13:24)
[2024-06-28] MEDS: SODIUM CHLORIDE 1025 ML IV (13:32)
[2024-06-28] MEDS: VANCOMYCIN/WATER FOR INJ (PEG) 1.75 GM/350 ML PIGGYBACK IV (13:33)
[2024-06-28 13:37] LABS: Thyroid Stimulating Hormone 1.81 uIU/mL (0.465-4.68)
[2024-06-28 16:28] LABS: Reflex Lactic Add Lactic Reflex
== END 2024-06-28 13:59 | disposition short-term general hospital (02) ==
PROVIDERS: Emergency Provider Emergency Medicine; PCP Family Medicine
DX: I63.512 Cerebral infarction due to unspecified occlusion or stenosis of left middle cerebral artery (principal); E11.10 Type 2 diabetes mellitus with ketoacidosis without coma; G93.41 Metabolic encephalopathy; E87.5 Hyperkalemia; R74.02 Elevation of levels of lactic acid dehydrogenase [LDH]; Z79.84 Long term (current) use of oral hypoglycemic drugs; I10 Essential (primary) hypertension; R29.708 NIHSS score 8
CPT/HCPCS: 70450; 70496; 70498; 71275; 74174; 80050; 80053; 80061; 82550; 82803; 83036; 83605; 83735; 83880; 84436; 84443; 84484; 85025; 85730; 87040; 87389; 93005; 96361; 96365; 99291; J7030; Q9967

== ENCOUNTER 2024-07-29 12:10 | Outpatient (CLI) | payer BC, SELFPAY ==
[2024-07-29 13:54] VITALS: BMI 32.1
== END 2024-07-29 23:59 | disposition home or self-care (01) ==
LOC: DIETICIAN 12:13
PROVIDERS: PCP Family Medicine; Visit Provider Family Medicine
DX: E11.9 Type 2 diabetes mellitus without complications (principal); Z71.3 Dietary counseling and surveillance
CPT/HCPCS: 97802

== ENCOUNTER 2024-09-19 08:51 | Outpatient (CLI) | payer BC, SELFPAY ==
[2024-09-19 18:33] LABS: Albumin Level 4.3 g/dl (3.5-5.0); Chloride 108 mmol/L (98-107); Potassium 4.3 mmoL/L (3.5-5.1); Sodium 136 mmol/L (136-145)
[2024-09-19 18:35] LABS: Alanine Aminotransferase 24 U/L (12-78); Aspartate Amino Transferase 27 U/L (17-59); Blood Urea Nitrogen 20 mg/dl (9-20); Estimated Glomerular Filt Rate 88 ml/min (>60); GFR (African American) 106 ML/MIN (>60)
[2024-09-19 18:36] LABS: Alkaline Phosphatase 74 U/L (38-126); Anion Gap 6.3 mEq/L (5-15); Bilirubin,Total 1.1 mg/dl (0.2-1.3); Calcium 9.7 mg/dl (8.4-10.2); Carbon Dioxide 26 mmol/L (22.0-30.0); Cholesterol 118 mg/dl (140-200); Globulin 2.2 g/dL (1.3-3.2); Glucose 144 mg/dl (74-100); HDL Cholesterol 59 mg/dl (40-60); Total Protein,Serum 6.5 g/dl (6.3-8.2); Triglycerides 91 mg/dl (30-150); VLDL Cholesterol 18 mg/dL (0-40)
[2024-09-19 18:47] LABS: Direct LDL Cholesterol 39.94 mg/dL (100-129)
== END 2024-09-19 23:59 | disposition home or self-care (01) ==
LOC: LAB.DROPOF 09-22 10:12
PROVIDERS: PCP Family Medicine; Visit Provider Family Medicine
DX: E11.42 Type 2 diabetes mellitus with diabetic polyneuropathy (principal); Z79.84 Long term (current) use of oral hypoglycemic drugs; E78.5 Hyperlipidemia, unspecified
CPT/HCPCS: 80053; 80061; 83036

== ENCOUNTER 2024-12-17 08:38 | Outpatient (CLI) | payer MEDICAID, SELFPAY ==
[2024-12-17] VITALS (8 sets, daily range): BP systolic 107–137; BP diastolic 72–88; PULSE 74–89; RESP 18–20; TEMP 36.6; O2SAT 97–100; BMI 31.4
--- NOTE | 2024-12-17 08:38 | CT_ITS ---
APPROVED REPORT Crime Prevention Police Officer: CLINICAL INDICATION Chest Pain TECHNIQUE Image Acquisition: A 128 slice MDCT scanner ([employer]Box[employer] View) was used for data acquisition. A noncontrast coronary calcium scan was performed. A CT attenuation threshold of 130 Hounsfield units (HU) was used for the detection of calcium in contiguous voxels of 1 sq mm in area to be counted as individual lesions. Bolus tracking in the ascending aorta with a threshold of 180 HU was performed. Immediately afterwards, ECG synchronized cardiac CT was then performed from the cardiac base to apex using retrospective gating with ECG tube current modulation. A total of 85 mL of Isovue 370 mg/mL contrast medium was administered at 5 mL/sec followed by a saline flush using a biphasic injection protocol. A tube voltage of 120 KVp was used. The patient received the following medications prior to the cardiac CT. 50 mg of oral metoprolol 7.5 mg of intravenous metoprolol 15 mg of oral ivabradine 0.4 mg of sublingual nitroglycerin The average heart rate at the time of acquisition was 72 bpm and regular. Image Reconstruction Transaxial images were reconstructed at 0.67 mm slide thickness. Data was reviewed interactively on an advanced workstation capable of 2 and 3-dimensional displays in all conventional reconstruction formats, including multiplanar reformations, maximum intensity projections, curved multiplanar reformations, and volume rendered reconstructions. When applicable, selected routine images describing the relevant coronary anatomy and pathology were saved and sent to PACS. Complications None Technical Quality Overall image quality was suboptimal due to significant motion and blurring artifact. Coronary artery opacification was fair. Total DLP (Dose-Length Product) is 1787.9 mGy-cm. The reported value represents the total of one or more individual components during the CT acquisition of this date and at this time, and as such, the same value may appear in more than one CT report depending on the interpreting/reporting physicians. COMPARISON None FINDINGS CT Coronary Calcium Scoring LMA (Left Main Artery) = 13 LAD (Left Anterior Descending) = 193 LCX (Left Coronary Circumflex) = 3 RCA (Right Coronary Artery) = 273 Total Calcium Score = 482 using the AJ-130 method. The observed calcium score of 482 is at 96th percentile for subjects of the same age, sex, and race/ethnicity. The interpretation of the calcium heart score is based on the following continuum*: 0 = no calcified plaque detected (risk of coronary artery disease is very low ??? less than 5%) 1-10 = calcium detected in extremely minimal levels (risk of coronary diseases is still low ??? less than 10%) 11-100 = mild levels of plaque detected with certainty (mild or minimal narrowing of heart arteries is likely) 101-400 = definite,at least moderate levels of plaque detected (relatively high risk of a heart attack within 3-5 years) >401-999 = extensive levels of plaque detected (high risk of heart attack, high levels of vascular disease are present, high likelihood of at least one significant coronary narrowing) *The calcium heart score quantifies the burden of coronary calcification/plaque in the coronary arteries. The calcium heart score is not able to evaluate the presence or burden of non-calcified (i.e. soft) plaque. There is no identifiable calcification in the aortic valve, mitral annulus or mitral valve, pericardium, or myocardium. Coronary CT Angiography The coronary arterial system is right dominant. Quantitative Stenosis Grading: Left Main (LM): The left main originates normally from the left sinus of Valsalva. The LM bifurcates into the left anterior descending artery and left circumflex artery. There is mixed calcified/noncalcified plaque in the proximal LM segment, with < 25% luminal stenosis. Left Anterior Descending (LAD) and Diagonal Branches: The LAD gives off 3 diagonal branch(es). There is mixed calcified/noncalcified plaque in the proximal and mid LAD segments, with up to 50-70% luminal stenosis. There is no evidence of LAD-myocardial bridge. Left Circumflex (LCX) and Obtuse Marginals (OM): The LCX gives off 1 Obtuse Marginal (OM) branch(es). There is mixed calcified/noncalcified plaque in the proximal LCx, with up to 25-49% luminal stenosis. Right Coronary Artery (RCA): The RCA originates normally from the right sinus of Valsalva. The RCA gives off a posterior descending artery (PDA) and posterolateral (PL) branches. The proximal RCA segment is difficult to visualize due to significant motion. There is mixed calcified/noncalcified plaque in the proximal and mid RCA segments with up to 50 to 70% luminal stenosis. Non-Coronary Cardiac Findings: Analysis of the left ventricular (LV) structure and function was performed after 3-D reconstruction of the LV from axial images, with user-corrected automatic contouring for assessment of LV volumes and user-defined reconstruction from oblique planes for measurement of 3-D cardiac structure and function. -The left ventricle systolic function is normal. -There is no left atrial appendage filling defect. Two right pulmonary veins and two left pulmonary veins drain normally into the left atrium. -No pericardial thickening or calcification. -Central and branch pulmonary arteries in the [id number] are unremarkable. -Thoracic aorta within the visualized thoracic aortic-branches in the [id number] is unremarkable. Extracardiac Structures No significant extra-cardiac findings. Note, however, that this study is focused on the cardiac findings. IMPRESSION -Suboptimal image quality due to significant blurring in motion artifact. -Presence of coronary calcification with an Agatston score = 482 using the AJ-130 method. -The observed calcium score of 482 is at 96th percentile for subjects of the same age, sex, and race/ethnicity. -Moderate, multivessel atherosclerotic coronary disease with possible evidence of significant flow-limiting atherosclerosis of the proximal LAD and proximal/mid RCA segments. -CAD-RADS 3. Management recommendations per ACC/AHA guidelines*, as clinically appropriate. *Recommendations: CAD RADS 0: Reassurance. Consider non-atherosclerotic causes of chest pain. CAD RADS 1: Consider non-atherosclerotic causes of chest pain. Consider preventive therapy and risk factor modification. CAD RADS 2: Consider non-atherosclerotic causes of chest pain. Consider preventive therapy and risk factor modification, particularly for patients with nonobstructive plaque in multiple segments. CAD RADS 3: Consider further functional testing. Consider symptom-guided anti-ischemic and preventive pharmacotherapy as well as risk factor modification per published guideline statements. CAD RADS 4A: Consider further functional testing or invasive coronary angiography with revascularization per published guideline statements. Consider symptom-guided anti-ischemic and preventive pharmacotherapy as well as risk factor modification per published guideline statements. CAD RADS 4B: Invasive coronary angiography recommended with revascularization per published guideline statements. Consider symptom-guided anti-ischemic and preventive pharmacotherapy as well as risk factor modification per published guideline statements. CAD RADS 5: Consider invasive angiography and/or viability assessment with revascularization per published guideline statements. Consider symptom-guided anti-ischemic and preventive pharmacotherapy as well as risk factor modification per published guideline statements. CRITICAL RESULT None COMMUNICATION Per this written report The coronary and cardiac findings of this CCTA were reviewed, reported, and signed by Gil Pina MD (Rn Supplemental) Conclusion Electronically signed by : Margot Pina MD 12/23/2024 01:06:28
[2024-12-17] MEDS: IVABRADINE HCL 7.5MG TABLET 15 MG PO (09:10)
[2024-12-17] MEDS: METOPROLOL TARTRATE 25MG TABLET 50 MG (09:10)
[2024-12-17 09:15] LABS: Prothrombin Time 10.2 seconds (10.1-12.5)
[2024-12-17 09:24] LABS: Chloride 106 mmol/L (98-107); Potassium 3.9 mmoL/L (3.5-5.1); Sodium 139 mmol/L (136-145)
[2024-12-17 09:26] LABS: Blood Urea Nitrogen 27 mg/dl (9-20)
[2024-12-17 09:27] LABS: Anion Gap 9.9 mEq/L (5-15); Calcium 9.7 mg/dl (8.4-10.2); Carbon Dioxide 27 mmol/L (22.0-30.0); Creatinine Clearance Estimated 117 mL/min (50-200); Estimated Glomerular Filt Rate 88 ml/min (>60); GFR (African American) 106 ML/MIN (>60); Glucose 145 mg/dl (74-100)
[2024-12-17] MEDS: METOPROLOL TARTRATE 5MG/5ML VIAL 5 MG IV (09:50)
[2024-12-17] MEDS: NITROGLYCERIN 0.4MG SL TABLET 0.4 MG SL (09:57)
[2024-12-17] MEDS: IOPAMIDOL-370 (76%);100ML BOTTLE 85 ML IV (09:58)
[2024-12-17] MEDS: 0.9 % SODIUM CHLORIDE 50 ML VIAL IV (09:58)
[2024-12-17] MEDS: SODIUM CHLORIDE 0.9% 10ML SYR (RAD ONLY) 10 ML IV (09:58)
[2024-12-17] MEDS: METOPROLOL TARTRATE 5MG/5ML VIAL 2.5 MG IV (10:05)
== END 2024-12-17 10:41 | disposition home or self-care (01) ==
PROVIDERS: PCP Family Medicine; Visit Provider Physician Assistant
DX: I25.10 Atherosclerotic heart disease of native coronary artery without angina pectoris (principal); R94.31 Abnormal electrocardiogram [ECG] [EKG]; Z82.49 Family history of ischemic heart disease and other diseases of the circulatory system; I63.512 Cerebral infarction due to unspecified occlusion or stenosis of left middle cerebral artery
CPT/HCPCS: 75574; 80048; 85610; Q9967

== ENCOUNTER 2024-12-31 07:38 | Day surgery (SDC) | payer MEDICAID, SELFPAY ==
[2024-12-31] VITALS (12 sets, daily range): BP systolic 106–155; BP diastolic 70–102; PULSE 78–98; RESP 16–20; O2SAT 92–100; BMI 32.9
--- NOTE | 2024-12-31 07:12 | IR_ITS ---
APPROVED REPORT Patient Location: Outpatient PROCEDURES Left heart catheterization Left ventriculogram Selective coronary angiogram INDICATION Abnormal stress test, Angina pectoris Informed consent was obtained prior to the procedure. COMPLICATIONS NONE Estimated Blood Loss: LESS THAN 10 ML TECHNIQUE One percent lidocaine used to anesthetize the right anterior aspect of the wrist. The right radial artery was accessed via the Seldinger technique. A 6 Q[place] sheath was placed in the right radial artery. 2.5 mg of Verapamil, 800 mcg of nitroglycerin, 1mg Lidocaine and 5000 U Heparin were given through the arterial sheath. The 6 [place] JL 3 catheter was also used to perform left heart catheterization, left ventriculogram and selective coronary angiogram. At the end of the procedure the sheath was removed good hemostasis was achieved using Traclet band, patient was transferred to the postop holding area in stable condition. ANGIOGRAPHIC RESULTS The left anterior descending artery Has its own ostium originating in the left coronary cusp and is normal The circumflex artery Has its own ostium originating in the left coronary cusp is dominant and normal The right coronary artery Originates in the right coronary cusp is nondominant and normal The GARCIA ventriculogram reveals Normal 65% The left ventricular end-diastolic pressure 10 mmHg IMPRESSION Normal coronary arteries Normal ejection fraction Normal LVEDP PLAN 1. Evaluation of noncardiac symptoms Electronically signed by : Christopher Pelaez MD 12/31/2024 12:50:48
[2024-12-31 08:33] LABS: Basophils # 0.1 K/mm3 (0-0.2); Basophils % 0.8 % (0.1-2.0); Eosinophils # 0.6 K/mm3 (0.0-0.4); Eosinophils % 7.6 % (0.1-12.0); Hematocrit 47.4 % (42.0-52.0); Lymphocytes # 1.4 K/mm3 (0.7-4.5); Lymphocytes % 16.3 % (10-50); Mean Corpuscular HGB Conc 33.8 g/dL (31.8-35.4); Mean Corpuscular Hemoglobin 29.3 pg (27.0-31.2); Mean Corpuscular Volume 86.7 fl (80-94); Mean Platelet Volume 10.6 fl (7.4-10.4); Monocytes # 0.6 K/mm3 (0.1-1.0); Monocytes % 7.6 % (1.7-9.3); Neutrophils # 5.7 K/mm3 (1.8-7.8); Neutrophils % 67.6 % (37.0-80.0); Platelet Count 256 K/mm3 (142-424); Red Blood Count 5.47 M/mm3 (4.60-6.20); Red Cell Distribution Width 13.2 % (11.5-17.5); White Blood Count 8.4 K/mm3 (4.8-10.8)
[2024-12-31 08:44] LABS: Chloride 102 mmol/L (98-107); Sodium 140 mmol/L (136-145)
[2024-12-31 08:47] LABS: Blood Urea Nitrogen 19 mg/dl (9-20); Carbon Dioxide 29 mmol/L (22.0-30.0); Creatinine Clearance Estimated 138 mL/min (50-200); Estimated Glomerular Filt Rate 101 ml/min (>60); GFR (African American) 122 ML/MIN (>60)
[2024-12-31 08:48] LABS: Glucose 221 mg/dl (74-100)
[2024-12-31] MEDS: LIDOCAINE 1% 10ML MDV 20 ML IJ (09:24)
[2024-12-31] MEDS: HEPARIN 1,000 UNITS/ML 10ML VIAL (CATH LAB) 10000 UNIT IV (09:25)
[2024-12-31] MEDS: NITROGLYCERIN 800MCG/8ML SYR (CATH LAB) 800 MCG IA (09:25)
[2024-12-31] MEDS: HEPARIN 1,000 UNITS/500ML NS (CATH LAB) 3000 UNIT IV (09:25)
[2024-12-31] MEDS: diphenhydrAMINE 50MG/ML VIAL 50 MG IV (09:25)
[2024-12-31] MEDS: VERAPAMIL 2.5MG/ML 2ML VIAL 2.5 MG IV (09:25)
[2024-12-31] MEDS: 0.9 % SODIUM CHLORIDE 500 ML 25 ML IV (09:26)
[2024-12-31] MEDS: MIDAZOLAM HCL 1MG/ML 5ML VIAL 1 MG IV (10:18)
[2024-12-31] MEDS: FENTANYL 100MCG/2ML VIAL 50 MCG IV (10:18)
[2024-12-31] MEDS: CLOPIDOGREL 300MG TABLET 600 MG PO (10:30)
[2024-12-31 14:50] LABS: CATHL Activated Clotting Time 331 SEC (74-125)
[2024-12-31] MEDS: IOPAMIDOL-370 (76%);100ML BOTTLE 110 ML IV (14:54)
== END 2024-12-31 14:10 | disposition home or self-care (01) ==
PROVIDERS: PCP Family Medicine; Visit Provider Internal Medicine
DX: I25.118 Atherosclerotic heart disease of native coronary artery with other forms of angina pectoris (principal); R93.1 Abnormal findings on diagnostic imaging of heart and coronary circulation; Z82.49 Family history of ischemic heart disease and other diseases of the circulatory system; Z95.5 Presence of coronary angioplasty implant and graft; I10 Essential (primary) hypertension; E78.5 Hyperlipidemia, unspecified; E11.9 Type 2 diabetes mellitus without complications; Z91.010 Allergy to peanuts; Z79.84 Long term (current) use of oral hypoglycemic drugs; Z79.899 Other long term (current) drug therapy; I77.1 Stricture of artery
CPT/HCPCS: 80048; 85025; 85347; 92928; 93458; 99152; 99153; C1725; C1760; C1769; C1874; C1894; C9600; J1200; J1644; J3010; Q9967

== ENCOUNTER 2025-01-02 07:36 | Outpatient (CLI) | payer MEDICAID, SELFPAY ==
[2025-01-02 08:49] LABS: Basophils # 0.1 K/mm3 (0-0.2); Basophils % 0.7 % (0.1-2.0); Eosinophils # 0.4 K/mm3 (0.0-0.4); Eosinophils % 4.8 % (0.1-12.0); Hematocrit 44.3 % (42.0-52.0); Hemoglobin 14.6 g/dL (14.1-18.0); Lymphocytes # 1.6 K/mm3 (0.7-4.5); Lymphocytes % 17.6 % (10-50); Mean Corpuscular Hemoglobin 28.7 pg (27.0-31.2); Mean Corpuscular Volume 87.2 fl (80-94); Mean Platelet Volume 10.8 fl (7.4-10.4); Monocytes % 10.9 % (1.7-9.3); Neutrophils # 5.8 K/mm3 (1.8-7.8); Neutrophils % 65.7 % (37.0-80.0); Platelet Count 245 K/mm3 (142-424); Red Blood Count 5.08 M/mm3 (4.60-6.20); Red Cell Distribution Width 13.1 % (11.5-17.5); White Blood Count 8.9 K/mm3 (4.8-10.8)
[2025-01-02 09:05] LABS: Chloride 105 mmol/L (98-107); Potassium 4.6 mmoL/L (3.5-5.1); Sodium 137 mmol/L (136-145)
[2025-01-02 09:08] LABS: Anion Gap 13.6 mEq/L (5-15); Blood Urea Nitrogen 20 mg/dl (9-20); Carbon Dioxide 23 mmol/L (22.0-30.0); Estimated Glomerular Filt Rate 88 ml/min (>60); GFR (African American) 106 ML/MIN (>60)
[2025-01-02 09:09] LABS: Calcium 9.7 mg/dl (8.4-10.2); Glucose 228 mg/dl (74-100)
== END 2025-01-02 23:59 | disposition home or self-care (01) ==
LOC: LAB 07:38
PROVIDERS: PCP Family Medicine; Visit Provider Internal Medicine
DX: I25.10 Atherosclerotic heart disease of native coronary artery without angina pectoris (principal); E11.9 Type 2 diabetes mellitus without complications; Z95.5 Presence of coronary angioplasty implant and graft
CPT/HCPCS: 36415; 80048; 85025

== ENCOUNTER 2025-03-12 09:48 | Outpatient (CLI) | payer MEDICAID, SELFPAY ==
--- OUTSIDE RECORDS SUMMARY | 2025-03-12 09:53 | XMS_ITS | Encounter Summary ---
Author Organization [facility] [facility] [employer] Address [address] [place] [address] Care Team Providers Care Inspector Government Property Name Role Phone Daryl Farnsworth MD Primary Care Provider + [phone] Encounter Details Date Type Department Care Team (Late st Contact Info) Description 01/04/2023 Surgery Prep [facility] Surgery Department [address] [place] [address] Rose Mary Pena MD [address] [place] [address] Social History Tobacco Use Types Packs/Day Years Used Date Smoking Tobacco: Never Assessed Sex and Gender Information Value Date Recorded Sex Assigned at Not on file Legal Sex Male 1:28 PM CDT Gender Identity Not on file Sexual Orientation Not on file COVID-19 Exposure Response Date Recorded In the last 10 days, have yo u been in contact with someone who was confirmed or suspected to have Coronavirus/COVID-19? No / Unsure 01/05/2023 8:12 AM EDT documented as of this encounter Plan of Treatment Not on file documented as of this encounter Visit Diagnoses Not on filedocumented in this encounter Care Teams Inspector Government Property Relationship Specialty Start Date End Date Daryl Farnsworth MD [address] [place] [address] PCP - General Family Medicine 01/05/23 documented as of this encounter
--- OUTSIDE RECORDS SUMMARY | 2025-03-12 09:53 | XMS_ITS | Clinical Summary ---
Author Organization [facility] Address [address] [place] [address] Care Team Providers Care Superintendent Seed Mill Name Role Phone Dheeraj Wood MD Primary Care Provider [phone] Allergies Active Allergy Reactions Criticality Noted Date Comments Peanut Allergen Powder-Dnfp Swelling High 06/29/20 24 Medications linaGLIPtin (Tradjenta) 5 MG tablet Take 1 tablet (5 mg) by mouth 1 (one) time each day. Active metFORMIN (Glucophage) 1000 MG tablet Take 1 tablet (1,000 mg) by mouth 2 (two) times a day. Active Continuous Glucose [employer] (Dexcom G7 Sales Representative [employer]) device Use to check glucose 1 each 4 Active Additional Information Patient not taking.Reported on 10/27/2024 atorvastatin (Lipitor) 40 MG tablet Take 1 tablet (40 mg) by mouth every night. 4 Active lisinopril 5 MG tablet Take 1 tablet (5 mg) by mouth 1 (one) time each day. 4 Active aspirin 81 MG chewable tablet Chew 1 tablet (81 mg) 1 (one) time each day. 4 Active insulin glargine-yfgn 100 UNIT/ML injection vial Inject 0.1 mL (10 Units) under the skin 1 (one) time each day. 4 Active Additional Information Patient not taking.Reported on 10/27/2024 Insulin Lispro (Admelog, HumaLOG) 100 UNIT/ML injection vial Inject 0.04 mL (4 Units) under the skin 3 (three) times a day with meals. 4 Active Additional Information Patient not taking.Reported on 10/27/2024 glipiZIDE 2.5 MG tablet Take 1 tablet by mouth 1 (one) time each day. 5 Active glipiZIDE XL 10 MG 24 hr tablet 4 Active donepezil (Aricept) 5 MG tablet Take 1 tablet (5 mg) by mouth every night. 4 Active Active Problems Problem Noted Date Diagnosed Date Acute ischemic stroke 06/28/2024 Overview (06/29/2024): CTH shows acute infarct of left MCA territory CTA shows subocclusive M2 thrombus No intervention, patient outside of window Continue VTE prophylaxis, antithrombotic, and statin as appropriate Repeat CT Head, ECHO & MRI pending Goal SBP<180 Na goal 145-150 for cerebral edema NIH stroke scale/neurologic examinations per policy PT/OT as appropriate Will continue ongoing stroke education Type 2 diabetes mellitus 06/28/2024 Overview (06/29/2024): Hgb A1c 11.3 Hold home regimen while in ICU See DKA HTN (hypertension) 06/28/2024 Overview (06/28/2024): Goal SBP<180 PRN Hydralazine and Labetalol Resume home medications as appropriate HLD (hyperlipidemia) 06/28/2024 Overview (06/28/2024): Continue home medications as appropriate Obesity 06/28/2024 Overview (06/28/2024): Complicates all aspects of care Resolved Problems Problem Noted Date Diagnosed Date Resolved Date DKA (diabetic ketoacidosis) 06/28/2024 07/02/2024 Overview (06/29/2024): Continue IVF resuscitation and IV insulin by drip per DKA protocol AG closed BHB 2.8 from 4 Close monitoring of BMP, ketones, lactic acid and pH Electrolytes and glucose will be closely monitored with replacement as required Consider Endocrine consult as necessary Leukocytosis 06/28/2024 07/02/2024 Overview (06/29/2024): WBCs 10 from 13 Afebrile Multifactorial etiology in setting of acute stroke Trend for now, may require further evaluation in near future Electrolyte abnormality 06/28/202411/2023 Overview (06/28/2024): Replace per ICU sliding scale protocol Social History Tobacco Use Types Packs/Day Years Used Date Smoking Tobacco: Unknown Tobacco Cessation:Counseling Given: Not Answered Humiliation, Afraid, Rape, a nd Kick questionnaire Answer Date Recorded Within the last year, have y ou been afraid of your partner or ex-partner? Patient unable to answer 07/01/2024 Within the last year, have y ou been humiliated or emotionally abused in other ways by your partner or ex-partner? Patient unable to answer 07/01/2024 Within the last year, have y ou been kicked, hit, slapped, or otherwise physically hurt by your partner or ex-partner? Patient unable to answer 07/01/2024 Within the last year, have y ou been raped or forced to have any kind of sexual activity by your partner or ex-partner? Patient unable to answer 07/01/2024 AUDIT-C Answer Date Recorded Q1: How often do you have a drink containing alcohol? Never 06/29/2024 Q2: How many drinks containi ng alcohol do you have on a typical day when you are drinking? Patient does not drink Q3: How often do you have si x or more drinks on one occasion? Never 06/29/2024 PHQ-2 Answer Date Recorded Patient Health Questionnaire-2 Score 0 10/27/2024 Hunger Vital Sign Answer Date Recorded Within the past 12 months, y ou worried that your food would run out before you got the money to buy more. Sometimes true Within the past 12 months, t he food you bought just didn't last and you didn't have money to get more. Sometimes true 10/2023 PRAPARE - Transportation Answer Date Re corded In the past 12 months, has l ack of transportation kept you from medical appointments or from getting medications? Yes 10/2023 In the past 12 months, has l ack of transportation kept you from meetings, work, or from getting things needed for daily living? Yes 07/01/2024 Housing Stability Vital Sign Answer Av e Recorded In the last 12 months, was t here a time when you were not able to pay the mortgage or rent on time? Yes 07/01/2024 In the last 12 months, how many places have you lived? 1 07/01/2024 In the last 12 months, was t here a time when you did not have a steady place to sleep or slept in a snf (including now)? No 07/01/2024 Utilities Answer Date Recorded In the past 12 months has th e electric, gas, oil, or water company threatened to shut off services in your home? No 07/01/2024 Sex and Gender Information Value Date Recorded Sex Assigned at Not on file Legal Sex Male 1:14 PM EDT Gender Identity Not on file Sexual Orientation Not on file Last Filed Vital Signs Vital Sign Reading Time Taken Comments Blood Pressure 151/93 10/27/2024 11:46 AM EST Pulse 83 10/27/2024 11:46 AM EST Temperature 36.9 C (98.4 F) 07/02/2024 12:05 PM EDT Respiratory Rate 16 10/27/2024 11:46 AM EST Oxygen Saturation 99% 10/27/2024 11:46 AM EST Inhaled Oxygen Concentration - - Weight 87.5 kg (193 lb) 10/27/2024 11:46 AM EST Height 170.2 cm (5' 7 ) 10/27/2024 11:46 AM EST Body Mass Index 30.23 10/27/2024 11:46 AM EST Plan of Treatment Upcoming Encounters Date Type Department Care Team (Late st Contact Info) Description 04/22/2025 9:00 AM EDT Office Visit [facility] [address] [place] [address] Dheeraj Gregory MD [address] [place] [address] 09/01/2025 9:00 AM EST Office Visit [place] [facility] [address] [place] [address] Yasir Xiong MD [address] [place] [address] Health Maintenance Due Date Last Done Comments [facility]-Infant/Child/Adol SDOH Screenings 1970 Diabetes: Dental Exam 1980 [facility]-DTaP,Tdap,and Td Vaccines (1 - Tdap) 1989 [facility]-Hepatitis B Vaccines (1 of 3 - 19+ 3-dose series) 1989 CT Colonography 2015 Colonoscopy 2015 FIT-DNA 2015 FIT 2015 FOBT 2015 Sigmoidoscopy 2015 [facility]-Colorectal Cancer Screening 2015 [facility]-Zoster Vaccines (1 of 2) 2020 [id number] Vaccine ( - 2023- season) 2024 [facility]-Diabetes: Hemoglobin A1C 09/27/2024 06/28/2024 [facility]- SDOH Screenings 12/30/2024 [facility]-Adult SDOH Screenings 12/30/2024 07/01/2024 [facility]-Depression Screening 10/27/2025 10/27/2024 [facility]-HIV Screening Completed 06/28/2024 [facility]-Hepatitis C Screening Completed 06/28/2024 [facility]-Influenza Vaccine Completed 07/18/2024 [facility]-Pneumococcal Vaccine: 50+ Years Completed 07/18/2024 [facility]-Obesity Intervention Completed 025, 10/15/2024, 07/14/2024, Additional history exists HPV Vaccines Aged Out No longer eligi ble based on patient's age to complete this topic [facility]-HIB Vaccines Aged Out No longer e ligible based on patient's age to complete this topic [facility]-Hepatitis A Vaccines Aged Out No longer eligible based on patient's age to complete this topic [facility]-IPV Vaccines Aged Out No longer e ligible based on patient's age to complete this topic [facility]-Rotavirus Vaccines Aged Out No lo nger eligible based on patient's age to complete this topic Procedures Procedure Name Priority Date/Time Associated Diagnosis Comments HEPATITIS C ANTIBODY - ED W/REFLEX TO HCV QUANT PCR STAT 06/28/2024 3:39 PM EDT ED HIV 1/2 ANTIBODY/ANTIGEN SCREEN WITH REFLEX TO HIV I/II DIFFERENTIATION STAT 06/28/2024 3:39 PM EDT HEMOGLOBIN A1C Add-On 06/28/2024 3:39 PM EDT from Last 3 Months or Most Recently Relevant to Health Maintenance Results * ED HIV 1/2 Antibody/Antigen Screen w/Reflex to HIV 1/2 Differentiation (06/28/2024 3:39 PM EDT) [facility] HIV 1 & 2 Antibody/Antigen Screen Non Reactive Non Reactive 06/28/2024 4:[address] [facility] Comment:Screening for HIV 1 & 2 antibodies, and P24 antigen is NONREACTIVE. No confirmatory testing is required. Blood Venous blood specimen / Unknown Venipuncture / Unknown 06/28/2024 3:39 PM EDT 06/28/2024 4:02 PM EDT Nhung Gomez MD LAB BLOOD ORDERABLES F inal Result Performing Organization Address City/[facility] Co de Phone Number [facility] [address] [place] [address] * Hepatitis C Antibody - ED (06/28/2024 3:39 PM EDT) Pathologist [facility] Hepatitis C Antibody Negative Negative 06/28/2024 4:[address] [facility] Blood Venous blood specimen / Unknown Venipuncture / Unknown 06/28/2024 3:39 PM EDT 06/28/2024 4:02 PM EDT us Nhung Gomez MD LAB BLOOD ORDERABLES F inal Result Performing Organization Address City/[facility]/ZIP Co de Phone Number [facility] [address] [place] [address] * (ABNORMAL) Hemoglobin A1c (06/28/2024 3:39 PM EDT) Hemoglobin A1c 11.3(H) <5.7 % 06/28/2024 8:[address] [facility] Blood Venous blood specimen / Unknown Venipuncture / Unknown 06/28/2024 3:39 PM EDT 06/28/2024 3:[address] [facility] - 06/28/2024 8:21 PM EDT HA1C Interpretive Data: Diagnosis of Diabetes: Diabetic > or = 6.5% Pre-diabetic 5.7 to 6.4% Non-diabetic < or = 5.6% Glycemic Targets for Type I and Type II Diabetics: Non- Adults <7.0% Adults <6.0% Children and Adolescents <7.5% Source: [place] [employer]. Standards of medical care in diabetes,2017. Diabetes Care.2017:40 (suppl 1):S1-S135. HbA1c assay performed by an ion-exchange chromatography method that is certified traceable to the DCCT. Catherine Alanis APRN LAB BLOOD ORDERABLES Final R esult [facility] [address] [place] [phone] from Last 3 Months or Most Recently Relevant to Health Maintenance Insurance [facility] [employer] [facility] MEDICAID Advance Directives * Full Code (Latest Code Status on File) Date Activated Date Inactivated Comments 06/28/2024 7:08 PM 07/02/2024 4:53 PM Question Answer Comments Patient has decision-making capacity? No Healthcare Surrogate: Parent(s) of the patient Care Teams Superintendent Seed Mill Relationship Specialty Start Date End Date Dheeraj Wood MD [address] [place] [address] PCP - General 07/01/24
--- OUTSIDE RECORDS SUMMARY | 2025-03-12 09:53 | XMS_ITS | Clinical Summary ---
Author Organization [employer] [facility] [employer] Address [address] [place] [address] Care Team Providers Care Flight Reservations Manager Name Role Phone Daryl Farnsworth MD Primary Care Provider + [phone] Allergies Active Allergy Reactions Criticality Noted Date Comments Peanut Other (See Comments) 01/05/2023 irritable bowel syndrome Medications metFORMIN (GLUCOPHAGE) 1000 MG tablet Take 1 tablet (1,000 mg total) by mouth 2 (two) times daily with breakfast and dinner. Active lisinopriL (PRINIVIL,ZESTR IL) 10 MG tablet Take 1 tablet (10 mg total) by mouth in the morning. Active atorvastatin (LIPITOR) 10 MG tablet Take 1 tablet (10 mg total) by mouth in the morning. Active Active Problems Problem Noted Date Diagnosed Date Type II diabetes mellitus Hypertension Insomnia Social History Tobacco Use Types Packs/Day Years Used Date Smoking Tobacco: Never Smokeless Tobacco: Never Alcohol Use Standard Drinks/Week Comments Not Currently 0 (1 standard drink = 0.6 oz pur e alcohol) Interpersonal Safety Answer Date Record ed Family or friends hurt you Not on file 10/20 Family or friends insult you Not on file Family or friends threaten you Not on file 0 10/20/2023 Family or friends scream or curse at you Not on file 10/20/2023 Housing Stability Answer Date Recorded Living situation today Not on file Living situation problems Not on file 2023 Food Insecurity Answer Date Recorded Food run out past 12 months Not on file 10/02 Food did not last past 12 months Not on file 10/20/2023 Employment Answer Date Recorded Help finding and keeping a job Not on file 0 10/20/2023 Family and Community Support Answer Av e Recorded Help with Day to Day Activities Not on file 10/20/2023 Feeling Lonely or Isolated Not on file 10/20 Educational Attainment Answer Date Seven rded Speak language other than Citizen [place] at home Not on file 10/20/2023 Want help with school or training Not on file 10/20/2023 Depression Answer Date Recorded PHQ-2 Risk Not on file 10/20/2023 Disabilities Answer Date Recorded Difficulty concentrating Not on file 024 Difficulty doing errands alone Not on file 0 10/20/2023 Substance Use Answer Date Recorded Used prescription meds for non-medical reasons N ot on file 10/20/2023 Used illegal drugs past 12 months Not on file 10/20/2023 Sex and Gender Information Value Date Recorded Sex Assigned at Not on file Legal Sex Male 1:28 PM CDT Gender Identity Not on file Sexual Orientation Not on file Last Filed Vital Signs Vital Sign Reading Time Taken Comments Blood Pressure 110/64 01/05/2023 1:39 PM EDT Pulse 103 01/05/2023 1:38 PM EDT Temperature 36.2 C (97.1 F) 01/05/2023 1:28 PM EDT Respiratory Rate 16 01/05/2023 1:28 PM EDT Oxygen Saturation 99% 01/05/2023 1:38 PM EDT Inhaled Oxygen Concentration - - Weight 85.1 kg (187 lb 9.6 oz) 01/05/2023 8:12 A M EDT Height 170.2 cm (5' 7 ) 01/05/2023 8:12 AM EDT Body Mass Index 29.38 01/05/2023 8:12 AM EDT Plan of Treatment Health Maintenance Due Date Last Done Comments CT Colonography 1970 Colonoscopy 1970 Colorectal Cancer Screening 1970 Diabetic Kidney Health Evaluation (KED) 1970 FOBT/FIT 1970 Fit-DNA (Cologuard) 1970 Sigmoidoscopy 1970 Diabetic Eye Exam 1980 Diabetic foot exam 1980 Depression Screening (12+) 1982 HIV Screening 1985 Hepatitis C Screening 1988 DTAP/TDAP/TD VACCINES (1 - Tdap) 1989 Pneumococcal 50+ years (1 of 2 - PCV) 1989 Lipid Panel 2005 Shingles Vaccine (Zoster) (1 of 2) 2020 Hemoglobin A1C 01/05/2023 Tobacco Cessation Counseling and Screening (12+) 01/0501/05/2023 COVID-19 VACCINE (1 - season) 2024 Influenza Vaccine (Season Ended) 2025 Insurance [id number] CROSS/BLUE SHIELD Advance Directives For more information, please contact: [phone] * Full Code (Latest Code Status on File) Date Activated Date Inactivated Comments 01/05/2023 6:58 AM 01/05/2023 3:10 PM Care Teams Flight Reservations Manager Relationship Specialty Start Date End Date Daryl Farnsworth MD [address] [place] [address] [place] [address] PCP - General Family Medicine 01/05/23
--- OUTSIDE RECORDS SUMMARY | 2025-03-12 09:53 | XMS_ITS | Encounter Summary ---
Author Organization [facility] Address [address] [place] [address] Care Team Providers Care Sport Shoe Spike Assembler Name Role Phone Pcp, No Primary Care Provider Unavailabl e Dheeraj Wood MD Primary Care Provider +1- [phone] Ammy Aparicio LPN Unavailable Unavailable Encounter Details Date Type Department Care Team (Late st Contact Info) Description 06/30/2024 Lab Requisition [facility] [address] [place] [address] Donta Young MD [address] [place] [address] Encounter for general adult medical examination without abnormal findings Social History Tobacco Use Types Packs/Day Years Used Date Smoking Tobacco: Unknown Humiliation, Afraid, Rape, a nd Kick questionnaire [...] more drinks on one occasion? Never 06/29/2024 Hunger Vital Sign Answer Date Recorded Within [...] place to sleep or slept in a senior care (including now)? No 07/01/2024 Utilities Answer Date Recorded In the past 12 months has e [employer], gas, oil, or water [employer] threatened to shut off services in your home? No 07/01/2024 Sex and Gender Information Value Date Recorded Sex Assigned at Not on file Legal Sex Male 1:14 PM EDT Gender Identity Not on file Sexual Orientation Not on file documented as of this encounter Functional Status * Calculated C-SSRS Risk Score (Lifetime/Recent) Answer Date of Assessment Author No Risk Indicated 07/02/2024 8:00 AM EDT Tona Ochoa, RN * Question Answer Date of Assessment Author 1. Wish to be (Past 1 Month) No 024 8:00 AM EDT Tona Koehler RN 2. Non-Specific Active Suici shauna Thoughts (Past 1 Month) No 07/02/2024 8:00 AM EDT Emery Koehler RN 6. Suicidal Behavior (Lifetime) No 8:00 AM EDT Tona Koehler RN documented as of this encounter Plan of Treatment Upcoming Encounters Date Type Department Care Team (Late st Contact Info) Description 04/22/2025 9:00 AM EDT Office Visit [facility] at [facility] [address] [place] [address] Dheeraj Gregory MD [address] [place] [address] 09/01/2025 9:00 AM EST Office Visit [facility] [address] [place] [address] Yasir Xiong MD [address] [place] [address] documented as of this encounter Procedures Procedure Name Priority Date/Time Associated Diagnosis Comments MULTI DRUG RESISTANCE TEST Routine 06/30/2024 8:30 AM EDT Encounter for general adult medical examination without abnormal findings documented in this encounter Results * Multi Drug Resistance Test (06/30/2024 8:30 AM EDT) Culture No growth at day 1 07/01/2024 11:32 AM EDT [facility] Swab (Nares and Laura Rectal) 06/30/2024 8:30 AM EDT 06/30/2024 2:02 PM EDT us Donta Young MD LAB MICROBIOLOGY - GEN ERAL ORDERABLES Final Result [facility] [address] [place] [address] documented in this encounter Visit Diagnoses Diagnosis Encounter for general adult medical examination without abnormal findings documented in this encounter Additional Health Concerns Assessment Noted Time A Body Mass Index follow-up plan has been documented for the patient 07/02/2024 1:53 PM EDT documented as of this encounter Care Teams Sport Shoe Spike Assembler Relationship Specialty Start Date End Date Pcp, Madyson [address] [place] [address] PCP - General Family Medicine 06/28/24 06/30/24 Dheeraj Wood MD [address] [place] [address] PCP - General 07/01/24 Ammy Aparicio LPN [employer] [address] TCM Nurse 07/14/24 08/13/24 documented as of this encounter
--- OUTSIDE RECORDS SUMMARY | 2025-03-12 09:53 | XMS_ITS | Referral Summary ---
Author Organization [employer] [facility] [employer] Address [address] [place] [address] Care Team Providers Care Copper Plate Printer Name Role Phone Daryl Farnsworth MD Primary Care Provider + [phone] Allergies Active Allergy Reactions Criticality Noted Date [...] Date Seven rded Speak language other than Ivorian at home Not on file 10/20/2023 Want [...] 01/05/2023 8:12 AM EDT Plan of Treatment Not on file Insurance BLUE CROSS/BLUE SHIELD Advance Directives For more information, please contact: [phone] * Full Code (Latest Code Status on File) Date Activated Date Inactivated Comments 01/05/2023 6:58 AM 01/05/2023 3:10 PM Care Teams Copper Plate Printer Relationship Specialty Start Date End Date Daryl Farnsworth MD [address] [place] [address] PCP - General Family Medicine 01/05/23
[2025-03-12 10:29] LABS: Hemoglobin A1C 10.5 % (4.0-6.0)
[2025-03-12 11:01] LABS: Alanine Aminotransferase 27 U/L (12-78); Albumin/Globulin Ratio 1.9 (1.1-1.8); Alkaline Phosphatase 94 U/L (38-126); Aspartate Amino Transferase 26 U/L (17-59); Bilirubin,Total 0.9 mg/dl (0.2-1.3); Blood Urea Nitrogen 27 mg/dl (9-20); Calcium 9.4 mg/dl (8.4-10.2); Carbon Dioxide 20 mmol/L (22.0-30.0); Chloride 108 mmol/L (98-107); Chol/HDL Ratio 2.1 (1-3.5); Cholesterol 130 mg/dl (140-200); Estimated Glomerular Filt Rate 88 ml/min (>60); GFR (African American) 106 ML/MIN (>60); Globulin 2.1 g/dL (1.3-3.2); Glucose 265 mg/dl (74-100); HDL Cholesterol 63 mg/dl (40-60); Sodium 133 mmol/L (136-145); Total Protein,Serum 6.1 g/dl (6.3-8.2); Triglycerides 87 mg/dl (30-150); VLDL Cholesterol 17 mg/dL (0-40)
[2025-03-12 11:11] LABS: Direct LDL Cholesterol 42.98 mg/dL (100-129)
== END 2025-03-12 23:59 | disposition home or self-care (01) ==
LOC: LAB 09:49
PROVIDERS: PCP Family Medicine; Visit Provider Family Medicine
DX: I10 Essential (primary) hypertension (principal); E11.42 Type 2 diabetes mellitus with diabetic polyneuropathy; E78.49 Other hyperlipidemia
CPT/HCPCS: 36415; 80053; 80061; 83036

== ENCOUNTER 2025-08-10 06:00 | Day surgery (SDC) | payer MEDICARE, SELFPAY ==
[2025-04-28 12:47] VITALS: BMI 32.9
--- NOTE | 2025-08-06 06:51 | EXP.HP ---
History of Present Illness *Admission Date: 08/10/25 *History of present illness: Mr. Martinez is a 55-year-old gentleman who is here for screening colonoscopy. The examination is deemed medically necessary for screening colonoscopy. The patient has been seen, interviewed and examined prior to the procedure by both myself and the anesthesia provider. [facility] Disclaimer: The information contained in this section may have been updated after the patient was seen, as this information can be updated by other users. Medical History Abnormal findings on diagnostic imaging of heart and coronary circulation Agatston coronary artery calcium score greater than 400 Coronary artery disease Abnormal ECG Family history of coronary artery disease Screening for colon cancer Acute ischemic left MCA stroke Expressive aphasia Onychomycosis Diabetic neuropathy HLD (hyperlipidemia) HTN (hypertension), benign T2DM (type 2 diabetes mellitus) Surgical History H/O heart artery stent S/P cardiac cath History of repair of ACL Hx of tonsillectomy Family History Other Adopted Asthma Cancer Coronary artery disease Diabetes Heart attack Hyperlipidemia Hypertension Social History (Updated 08/10/25 @ 07:01 by Papi Bennett CRNA) Smoking Status: Never smoker alcohol intake: never substance use type: denies use current occupational status: employed Travel in the last 8 weeks?: None Have you lived/traveled outside US in past 30 days?: No Contact w/someone who lives/traveled outside US past 30 days?: No Exposure to someone with infectious disease in past 14 days?: No Do you have a fever (greater than 100.4 F or 38 C)?: No Have you tested positive for COVID-19?: No Exposed to someone with COVID-19 in past 14 days?: No Do you have a sore throat?: No Do you have a cough?: No Do you have any weakness?: No Are you experiencing any nausea/vomitting?: No Do you have any diarrhea?: No Are you experiencing any unusual bleeding?: No Do you have any muscle aches/pain?: No Do you have any abdominal pain?: No Are you experiencing loss of taste or smell?: No Other Medical History Have you received the Pneumonia Vaccine: Yes Review of Systems Review of Systems Review of systems (narrative): Negative *Cardiovascular Comments: Negative *Gastrointestinal Comments: Negative *Genitourinary Comments: Negative *Musculoskeletal Comments: Negative *Neurologic Comments: Negative Meds Home Medications and Allergies Home Medications ?Medication ?Instructions ?Recorded ?Confirmed ?Type blood sugar diagnostic (Blood #100 ea 02/19/23 08/10/25 Rx Glucose Test strips) flash glucose scanning reader #1 ea 02/19/23 08/10/25 Rx (FreeStyle Yrn 14 Day [place]) flash glucose sensor (FreeStyle #1 ea 02/19/23 08/10/25 Rx Yrn 14 Day Sensor kit) lancets 30 gauge #100 ea 02/19/23 08/10/25 Rx blood sugar diagnostic (ReliOn #300 ea 10/13/24 08/10/25 Rx Prime Test Strips) metformin 1,000 mg tablet 1,000 mg PO BIDWMEAL #180 tabs 10/13/24 08/10/25 Rx lisinopril 20 mg tablet 20 mg PO DAILY #90 tabs 11/14/24 08/10/25 Rx atorvastatin 40 mg tablet 40 mg PO DAILY #90 tabs 01/06/25 08/10/25 Rx bisoprolol fumarate 5 mg tablet 5 mg PO DAILY #30 tabs 04/27/25 08/10/25 Rx amlodipine 5 mg tablet See Rx Instructions .Route 05/19/25 08/10/25 Rx .COMPLEX #90 tabs ammonium lactate 12 % topical cream 1 applic topical BID dry skin, 05/19/25 08/10/25 Rx callus care 30 days #385 grams semaglutide 2 mg/dose (8 mg/3 mL) 2 mg (0.75 mL) SQ WEEKLY #3 mL 06/22/25 08/10/25 Rx subcutaneous pen injector (Ozempic) clopidogrel 75 mg tablet (Plavix) 75 mg PO DAILY #90 tabs 07/10/25 08/10/25 Rx aspirin 81 mg tablet,delayed 81 mg PO DAILY #90 tabs 07/13/25 08/10/25 Rx release (Adult Aspirin Regimen) glipizide 2.5 mg tablet 2.5 mg PO DAILY #90 tabs 07/13/25 08/10/25 Rx sodium,potassium,mag sulfates 17.5 See Rx Instructions PO .COMPLEX 07/27/25 08/10/25 Rx gram-3.13 gram-1.6 gram oral soln #354 mL (Suprep Bowel Prep Kit) donepezil 5 mg tablet 5 mg PO DAILY 08/03/25 08/10/25 History New Prescriptions to Start Prescriptions: Allergies Allergy/AdvReac Type Severity Reaction Status Date / Time peanut Allergy Severe intestinal Verified 08/10/25 06:20 swelling Exam *Routine HEENT Exam Head: Present normocephalic Eye: Present EOMI and PERRL ENT: Present mucous membranes moist *Routine Neck Exam Neck: Present supple *Routine Respiratory Exam Respiratory: Present CTA bilaterally *Routine Cardiovascular Exam Cardiovascular: Present RRR *Routine Abdominal Exam Abdominal: Present soft and normoactive bowel sounds; Absent tenderness *Routine Rectal Exam Rectal:: deferred *Routine Genitalia Exam Genitalia:: deferred *Routine Extremities Exam Extremities: Absent cyanosis, clubbing or edema *Routine Skin Exam Skin: Present warm; Absent rash *Routine Neurological Exam Neurological: Present alert and oriented X3 Assessment and Plan *Assessment and plan (1) Screening for colon cancer: Status: Acute Category: Medical Code(s): Z12.11 - Encounter for screening for malignant neoplasm of colon Plan A/P: 1. Screening for colon cancer is the preprocedural diagnosis. The patient will be anesthetized/sedated using MAC sedation. The patient has been seen and examined. Cardiac and lung assessment prior to the examination is stable. Proceed with planned screening colonoscopy.
[2025-08-10 06:26] VITALS: BP 124/94; PULSE 94; RESP 16; TEMP 36.1; O2SAT 100; BMI 31.9
[2025-08-10 06:38] LABS: POC Glucose,Bedside 126 gm/dL (70-110)
[2025-08-10] MEDS: LACTATED RINGERS 1000ML 1,000 ML 50 ML IV (06:38)
--- NOTE | 2025-08-10 06:57 | P.PCN_ITS ---
[facility] Procedure Note Date: 08/10/25 Time: 07:48 Procedure Note:: Colonoscopy Procedure Report: Colonoscopy with cold snare polypectomy Endoscopist: Erik Ernandez II, MD Referring physician: Dheeraj Wood MD Date of Procedure: August 10, 2025 Equipment: Olympus [id number] adult colonoscope Sedation: MAC sedation Indication: Mr. Martinez is a 55-year-old gentleman who is here for initial screening colonoscopy. The patient reports no abdominal pain, weight loss, change in his bowel habits or rectal bleeding. He reports no family history of colon cancer. The examination is deemed medically necessary for screening colonoscopy. Procedure: Prior to the procedure, a history and physical exam was performed, and patient's medications and allergies were reviewed. The risks, benefits and alternatives of the sedation and procedure were discussed with the patient. All questions were answered and informed consent was obtained. The patient was brought to the procedure room. Patient identification and proposed procedure were verified by the physician and the nurse. The patient was placed in a left lateral decubitus position and the scope was passed under direct vision. Throughout the procedure, the patient's blood pressure, pulse, and oxygen saturations were monitored continuously. The colonoscopy was accomplished without difficulty. The patient tolerated the procedure well. Findings: On digital rectal examination there was normal rectal tone. There were no external hemorrhoids. The prostate was 2+, smooth, soft, symmetric without nodules. The colonoscope was introduced through the anal canal to the rectum and advanced to the cecum. The ileocecal valve and appendiceal orifice were identified. The scope was advanced a short distance into the ileum which appeared grossly normal. The scope was then withdrawn into the colon. There were 7 colon polyps (cecum x 2 (4 and 4 mm) and transverse x 5 (3, 3, 4, 4 and 6 mm)). These were all removed via cold snare polypectomy. The remaining cecum, ascending, transverse, descending, sigmoid and rectum were grossly normal. There were no other mucosal abnormalities identified. Upon retroflexion within the rectum there were grade 1-2 internal hemorrhoids. The preparation was excellent throughout with [place] Preparation Score of 9. The cecal time was 14 minutes. Impression: 1. Diminutive colonic polyps x 7 Plan: I will follow-up the polyp histology and recommend repeat screening/surveillance colonoscopy again in 3 to 5 years based upon the pathology.
--- NOTE | 2025-08-10 07:01 | P.PNANES_ITS ---
[facility] Disclaimer: The information contained in this section may have been updated after the patient was seen, as this information can be updated by other users. Medical History Abnormal findings on diagnostic imaging of heart and coronary circulation Agatston coronary artery calcium score greater than 400 Coronary artery disease Abnormal ECG Family history of coronary artery disease Screening for colon cancer Acute ischemic left MCA stroke Expressive aphasia Onychomycosis Diabetic neuropathy HLD (hyperlipidemia) HTN (hypertension), benign T2DM (type 2 diabetes mellitus) Surgical History H/O heart artery stent S/P cardiac cath History of repair of ACL Hx of tonsillectomy Family History Other Adopted Asthma Cancer Coronary artery disease Diabetes Heart attack Hyperlipidemia Hypertension Social History (Updated 08/10/25 @ 06:27 by Christine Armstrong RN) Smoking Status: Never smoker alcohol intake: never substance use type: denies use current occupational status: employed Travel in the last 8 weeks?: None [facility] Anesthesia Checklist Patient Identification Patient Identification: Arm Band and Verbal (Name & ) Structural Data Admitted From: Home Planned Operative Procedure/s: Colonoscopy Verified Documents: Surgical Consent NPO Status Verified Time NPO: 00:00 Chart Verification Results Verified: ECG Additional verifications Anesthesia Reactions: No Hx Blood Transfusions: No Blood Transfusion Reaction: No Airway Assessment Mallampati Score:: Class II C-Spine Mobility Assessed: Yes TMJ Mobility Assessed: Yes Dentition: Good Dentition Neurological Assessment Level of Consciousness: Awake, Alert and Appropriate Hx Seizures: No Numbness or tingling in extremities: No Anesthesia Plan Anesthesia Risk discussed: Yes Anesthesia Plan: Verified ASA Class: III Anesthesia Type: MAC
[2025-08-10 07:51] VITALS: BP 83/52; PULSE 103; RESP 18; TEMP 36.4; O2SAT 98
[2025-08-10 08:06] VITALS: BP 101/58; PULSE 92; RESP 16; O2SAT 98
[2025-08-10 08:21] VITALS: BP 106/56; PULSE 88; RESP 18; O2SAT 98
== END 2025-08-10 08:27 | disposition home or self-care (01) ==
PROVIDERS: PCP Family Medicine; Visit Provider Internal Medicine Gastroenterology
PROC: 0DJD8ZZ Inspection of Lower Intestinal Tract, Via Natural or Artificial Opening Endoscopic (ICD-10-PCS; CPT 45378; principal; 2025-08-10 07:30)
DX: Z12.11 Encounter for screening for malignant neoplasm of colon (principal); D12.0 Benign neoplasm of cecum; D12.3 Benign neoplasm of transverse colon; K64.0 First degree hemorrhoids; K64.1 Second degree hemorrhoids; I10 Essential (primary) hypertension; E78.5 Hyperlipidemia, unspecified; E11.9 Type 2 diabetes mellitus without complications; I25.10 Atherosclerotic heart disease of native coronary artery without angina pectoris; Z79.82 Long term (current) use of aspirin; Z79.02 Long term (current) use of antithrombotics/antiplatelets; Z79.85 Long-term (current) use of injectable non-insulin antidiabetic drugs; Z79.84 Long term (current) use of oral hypoglycemic drugs
CPT/HCPCS: 45385; 82962; 88305; J2003; J2704; J7120

== ENCOUNTER 2025-09-17 10:04 | Outpatient (CLI) | payer MEDICARE, SELFPAY ==
[2025-09-17 16:23] LABS: Alanine Aminotransferase 28 U/L (12-78); Albumin Level 4.3 g/dl (3.5-5.0); Albumin/Globulin Ratio 1.8 (1.1-1.8); Alkaline Phosphatase 78 U/L (38-126); Anion Gap 13.0 mEq/L (5-15); Aspartate Amino Transferase 31 U/L (17-59); Bilirubin,Total 1.0 mg/dl (0.2-1.3); Blood Urea Nitrogen 14 mg/dl (9-20); Calcium 9.6 mg/dl (8.4-10.2); Carbon Dioxide 25 mmol/L (22.0-30.0); Chloride 106 mmol/L (98-107); Cholesterol 117 mg/dl (140-200); Creatinine,Serum 0.70 mg/dl (0.66-1.25); Estimated Glomerular Filt Rate 117 ml/min (>60); GFR (African American) 142 ML/MIN (>60); Globulin 2.4 g/dL (1.3-3.2); Glucose 132 mg/dl (74-100); HDL Cholesterol 70 mg/dl (40-60); Potassium 4.0 mmoL/L (3.5-5.1); Sodium 140 mmol/L (136-145); Total Protein,Serum 6.7 g/dl (6.3-8.2); Triglycerides 98 mg/dl (30-150)
[2025-09-17 16:40] LABS: Free T4 (Free Thyroxine) 1.47 ng/dl (0.78-2.19)
[2025-09-17 16:53] LABS: Thyroid Stimulating Hormone 1.25 uIU/mL (0.465-4.68)
[2025-09-17 18:14] LABS: Hemoglobin A1C 6.3 % (4.0-6.0)
--- OUTSIDE RECORDS SUMMARY | 2025-09-18 10:32 | XMS_ITS | Encounter Summary ---
Author Organization Healthcare Address [address] [place] [address] Care Team Providers Care Bacteriologist Food Name Role Phone Pcp, No Primary Care Provider Unavailabl e Dheeraj Wood MD Primary Care Provider + [phone] Ammy Aparicio LPN Unavailable Unavailable Encounter Details Date Type Department Care Team (Late st Contact Info) Description 06/30/2024 Lab Requisition [facility] [address] [place] [address] Donta Young MD [address] [facility] [address] [place] [id number] Encounter for general adult medical examination without [...] place to sleep or slept in a long-term (including now)? No 07/01/2024 Utilities Answer Date Recorded In the past 12 months has e [employer], gas, oil, or water [employer] threatened to shut off services in your home? No 07/01/2024 Sex and Gender Information Value Date Recorded Sex Assigned at Not on file Legal Sex Male 1:14 PM EDT Gender Identity Not on file Sexual Orientation Not on file documented as of this encounter Functional Status * Question Answer Date of Assessment Author Precautions Fall risk;Lesliemen zunilda surveillance 07/02/2024 12:00 PM EDT Tona Koehler, CHELO * Calculated C-SSRS Risk Score (Lifetime/Recent) Answer Date of Assessment Author No Risk Indicated 07/02/2024 8:00 AM EDT Tona Ochoa RN * Question Answer Date of Assessment Author 1. Wish to be (Past 1 Month) No 024 8:00 AM EDT Tona Koehler RN 2. Non-Specific Active Suici shauna Thoughts (Past 1 Month) No 07/02/2024 8:00 AM EDT Emery Koehler RN 6. Suicidal Behavior (Lifetime) No 8:00 AM EDT Tona Koehler RN documented as of this encounter Mental Status * Question Answer Entry Date Author Precautions Fall risk;Neela zunilda surveillance 07/02/2024 12:00 PM EDT Tona Koehler RN documented in this encounter Plan of Treatment Upcoming Encounters Date Type Department Care Team (Late st Contact Info) Description 04/21/2026 9:00 AM EDT Office Visit [facility] [address] [place] [address] Dheeraj Gregory MD [address] [facility] [address] [place] [address] documented as of this encounter Procedures Procedure Name Priority Date/Time Associated Diagnosis Comments MULTI DRUG RESISTANCE TEST Routine 06/30/2024 8:30 AM EDT Encounter for general adult medical examination without abnormal findings documented in this encounter Results * Multi Drug Resistance Test (06/30/2024 8:30 AM EDT) Culture No growth at day 1 07/01/2024 11:32 AM EDT [facility] Swab (Nares and Laura Rectal) 06/30/2024 8:30 AM EDT 06/30/2024 2:02 PM EDT us Donta Young MD LAB MICROBIOLOGY - GEN ERAL ORDERABLES Final Result [facility] [address] [place] [address] documented in this encounter Visit Diagnoses Diagnosis Encounter for general adult medical examination without abnormal findings documented in this encounter Additional Health Concerns Assessment Noted Time A Body Mass Index follow-up plan has been documented for the patient 07/02/2024 1:53 PM EDT documented as of this encounter Care Teams Bacteriologist Food Relationship Specialty Start Date End Date Pcp, [facility] [address] [place] [address] PCP - General Family Medicine 06/28/24 06/30/24 [place] [address] PCP - General 07/01/24 Ammy Aparicio LPN [employer] [place] [address] None TCM Nurse 07/14/24 08/13/24 documented as of this encounter
--- OUTSIDE RECORDS SUMMARY | 2025-09-18 10:32 | XMS_ITS | Clinical Summary ---
Author Organization [facility] Address [address] [place] [address] Care Team Providers Care Piano Case Maker Name Role Phone Dheeraj Wood MD Primary Care Provider [phone] Allergies Active Allergy Reactions Criticality Noted Date Comments Peanut Allergen Powder-Dnfp Swelling High 06/29/20 24 Medications linaGLIPtin (Tradjenta) 5 MG tablet Take 1 tablet (5 mg) by mouth 1 (one) time each day. Active metFORMIN (Glucophage) 1000 MG tablet Take 1 tablet (1,000 mg) by mouth 2 (two) times a day. Active Continuous Glucose Brewery Worker (Dexcom G7 Brewery Worker) device Use to check glucose 1 each [...] mg) by mouth every night. 4 Active Ozempic, 0.25 or 0.5 MG/DOSE, 2 MG/3ML solution pen-injector 1 time per week. 5 Active amLODIPine (Norvasc) 5 MG tablet Take 1 tablet by mouth daily. 5 Active bisoprolol (Zebeta) 5 MG tablet Take 1 tablet by mouth daily. 5 Active lisinopril 10 MG tablet Take 1 tablet by mouth daily. 5 Active Active Problems Problem Noted Date Diagnosed [...] Date Recorded Patient Health Questionnaire-2 Score 0 04/22/2025 Hunger Vital Sign Answer Date Recorded Within [...] place to sleep or slept in a [facility] (including now)? No 07/01/2024 Utilities Answer Date [...] Sign Reading Time Taken Comments Blood Pressure 121/86 04/22/2025 8:46 AM EDT Pulse 87 04/22/2025 8:37 AM EDT Temperature 36.9 C (98.4 F) 07/02/2024 12:05 PM EDT Respiratory Rate 16 04/22/2025 8:37 AM EDT Oxygen Saturation 97% 04/22/2025 8:37 AM EDT Inhaled Oxygen Concentration - - Weight 92.8 kg (204 lb 9.4 oz) 04/22/2025 8:37 A M EDT Height 170.2 cm (5' 7 ) 04/22/2025 8:37 AM EDT Body Mass Index 32.04 04/22/2025 8:37 AM EDT Plan of Treatment Upcoming Encounters Date Type Department Care Team (Late st Contact Info) Description 04/21/2026 9:00 AM EDT Office Visit [facility] [address] [place] [address] Dheeraj Gregory MD [address] [place] [address] Health Maintenance Due Date Last Done Comments [facility]-Medicare Annual Wellness (AWV) 1970 [facility]-Infant/Child/Adol SDOH Screenings 1970 Diabetes: Dental Exam 1980 [facility]- SDOH Screenings 1988 [facility]-Adult SDOH Screenings 1988 [facility]-DTaP,Tdap,and Td Vaccines (1 - Tdap) 1989 [facility]-Hepatitis B Vaccines (1 of 3 - 19+ 3-dose series) 1989 CT Colonography 2015 Colonoscopy 2015 FIT-DNA 2015 FIT 2015 FOBT 2015 Sigmoidoscopy 2015 [facility]-Colorectal Cancer Screening 2015 [facility]-Zoster Vaccines (1 of 2) 2020 [facility]-Diabetes: Hemoglobin A1C 09/27/2024 06/28/2024 [id number] Vaccine ( - season) 2025 [facility]-Influenza Vaccine (#1) 2025 07/18/2024 [facility]-Depression Screening 04/22/2026 04/22/2025 [facility]-HIV Screening Completed 06/28/2024 [facility]-Hepatitis C Screening Completed 06/28/2024 [facility]-Pneumococcal Vaccine: 50+ Years Completed 07/18/2024 [facility]-Obesity Intervention Completed 025, 10/27/2024, 10/15/2024, Additional history exists HPV Vaccines (No Doses Required) Completed [facility]-HIB Vaccines Aged Out No longer e [...] HIV 1/2 Differentiation (06/28/2024 3:39 PM EDT) HIV 1 & 2 Antibody/Antigen Screen Non Reactive Non Reactive 06/28/2024 4:[address] [facility] Comment:Screening for HIV 1 & 2 antibodies, and P24 antigen is NONREACTIVE. No confirmatory testing is required. Blood Venous blood specimen / Unknown Venipuncture / Unknown 06/28/2024 3:39 PM EDT 06/28/2024 4:02 PM EDT Nhung Gomez MD LAB BLOOD ORDERABLES F inal Result [facility] [address] [place] [address] * Hepatitis C Antibody - ED (06/28/2024 3:39 PM EDT) Hepatitis C Antibody Negative Negative 06/28/2024 4:[address] [facility] Blood Venous blood specimen / Unknown Venipuncture / Unknown 06/28/2024 3:39 PM EDT 06/28/2024 4:02 PM EDT us Nhung Gomez MD LAB BLOOD ORDERABLES F inal Result Performing Organization Address City/[facility] Co de Phone Number [facility] [address] [place] [address] * (ABNORMAL) Hemoglobin A1c (06/28/2024 3:39 PM EDT) Hemoglobin A1c 11.3(H) <5.7 % 06/28/2024 8:[address] [facility] Blood Venous blood specimen / Unknown Venipuncture / Unknown 06/28/2024 3:39 PM EDT 06/28/2024 3:[address] [facility] - 06/28/2024 8:21 PM EDT HA1C Interpretive Data: Diagnosis of Diabetes: Diabetic > or = 6.5% Pre-diabetic 5.7 to 6.4% Non-diabetic < or = 5.6% Glycemic Targets for Type I and Type II Diabetics: Non- Adults <7.0% Adults <6.0% Children and Adolescents <7.5% Source: [place] [employer]. Standards of medical care in diabetes,2017. Diabetes Care.2017:40 (suppl 1):S1-S135. HbA1c assay performed by an ion-exchange chromatography method that is certified traceable to the DCCT. Catherine Alanis APRN LAB BLOOD ORDERABLES Final R esult Performing Organization Address [facility] Co de Phone Number [facility] [address] [place] [address] from Last 3 Months or Most Recently Relevant to Health Maintenance Insurance MEDICARE Advance Directives * Full Code (Latest Code Status on File) Date Activated Date Inactivated Comments 06/28/2024 7:08 PM 07/02/2024 4:53 PM Question Answer Comments Patient has decision-making capacity? No Healthcare Surrogate: Parent(s) of the patient Care Teams Piano Case Maker Relationship Specialty [place] [id number] PCP - General 07/01/24
--- OUTSIDE RECORDS SUMMARY | 2025-09-18 10:32 | XMS_ITS | Encounter Summary ---
Author Organization [employer] ([place], [place], [place], [place], [place]) Address [address] [place] [address] Care Team Providers Care Prosthetist Name Role Phone Daryl Farnsworth MD Primary Care Provider [phone] Encounter Details Date Type Department Care Team (Late st Contact Info) Description 01/04/2023 Surgery Prep [facility] Surgery Department [address] [place] [address] Rose Mary Pena MD [address] [facility] [address] [place] [address] Social History Tobacco Use Types Packs/Day Years [...] on filedocumented in this encounter Care Teams Prosthetist Relationship Specialty Start Date End Date Daryl Farnsworth MD [address] [place] [address] PCP - General Family Medicine 01/05/23 documented as of this encounter
--- OUTSIDE RECORDS SUMMARY | 2025-09-18 10:32 | XMS_ITS | Clinical Summary ---
Author Organization [employer] ([place], [place], [place], [place], [place]) Address [address] [place] [address] Care Team Providers Care Community Service Coordinator Name Role Phone Daryl Farnsworth MD Primary Care Provider + [phone] Allergies Active Allergy Reactions Criticality Noted Date [...] drink = 0.6 oz pur e alcohol) Food Insecurity Answer Date Recorded Food run [...] Date Seven rded Speak language other than Serbian at home Not on file 10/20/2023 Want help with school or training Not on file 10/20/2023 Substance Use Answer Date Recorded Used [...] 1970 Sigmoidoscopy 1970 Diabetic Eye Exam 1980 Depression Screening (12+) 1982 HIV Screening 1985 Hepatitis C Screening 1988 DTAP/TDAP/TD VACCINES (1 - Tdap) 1989 Pneumococcal 50+ years (1 of 2 - PCV) 1989 Lipid Panel 2005 Shingles Vaccine (Zoster) (1 of 2) 2020 Hemoglobin A1C 01/05/2023 Tobacco Cessation Counseling and Screening (12+) 01/0501/05/2023 COVID-19 VACCINE (1 - season) 2025 Influenza Vaccine (#1) 2025 Insurance BLUE CROSS/BLUE SHIELD Advance Directives For more information, please contact: [phone] * Full Code (Latest Code Status on File) Date Activated Date Inactivated Comments 01/05/2023 6:58 AM 01/05/2023 3:10 PM Care Teams Community Service Coordinator Relationship Specialty Start Date End Date Daryl Farnsworth MD [address] [place] [address] [place] T[place]z [address] PCP - General Family Medicine 01/05/23
--- OUTSIDE RECORDS SUMMARY | 2025-09-18 10:32 | XMS_ITS | Referral Summary ---
Author Organization [employer] ([place], [place], [place], [place], [place]) Address [address] [place] [address] Care Team Providers Care Manager Learning Name Role Phone Daryl Farnsworth MD Primary Care Provider + [phone] Allergies Active Allergy Reactions Criticality Noted Date [...] Date Seven rded Speak language other than Khmer at home Not on file 10/20/2023 Want [...] Plan of Treatment Not on file Insurance [facility]/[employer] [facility] Advance Directives For more information, please contact: [phone] * Full Code (Latest Code Status on File) Date Activated Date Inactivated Comments 01/05/2023 6:58 AM 01/05/2023 3:10 PM Care Teams Manager Learning Relationship Specialty Start Date End Date Daryl Farnsworth MD [address] [place] [address] [place] [address] PCP - General Family Medicine 01/05/23
== END 2025-09-17 23:59 | disposition home or self-care (01) ==
LOC: LAB.DROPOF 09-18 10:29
PROVIDERS: PCP Family Medicine; Visit Provider Family Medicine
DX: E11.42 Type 2 diabetes mellitus with diabetic polyneuropathy (principal); I10 Essential (primary) hypertension
CPT/HCPCS: 80053; 80061; 83036; 84439; 84443